=== PATIENT | female | born 1935 | race Caucasian/White ===

== ENCOUNTER 2016-09-12 16:07 | Inpatient (IN) ==
[2016-09-12] MEDS ORDERED: Ipratropium/Albuterol Neb 3 ML IH ONE (17:09)
[2016-09-12 17:23] LABS: INR 2.2; Prothrombin Time 24.5 Seconds (9.4-12.1)
[2016-09-12 17:24] LABS: Basophils % 0.5 %; Eosinophils % 0.3 %; Hemoglobin 14.1 g/dL (11.5-15.4); Immature Granulocytes % 0.4 % (0-4); Lymphocytes # 0.8 K/mcL (0.6-4.6); Lymphocytes % 10.3 %; Mean Corpuscular Hemoglobin 26.7 pg (28.0-33.3); Mean Corpuscular Volume 83.2 fL (83.0-100.0); Monocytes # 0.7 K/mcL (0.0-1.3); Monocytes % 9.6 %; Neutrophils # 6.1 K/mcL (1.6-8.9); Platelet Count 273 K/mcL (140-400); Red Blood Count 5.29 M/mcL (3.82-4.97); Red Cell Distribution Width 13.9 % (11.5-14.5); Segmented Neutrophils % 78.9 %
[2016-09-12 17:26] LABS: Activated Partial Thrombo Time 37.1 Seconds (26.0-36.0)
[2016-09-12 17:28] LABS: VBG HCO3 27.7 mEq/L (21-27); VBG PCO2 48.4 mmHg (41-51); VBG PH 7.37 pH Units (7.32-7.42); VBG PO2 20.8 mmHg (25-40)
[2016-09-12 17:32] LABS: BUN/Creatinine Ratio 13 (6-26); Blood Urea Nitrogen 14 mg/dL (7-20); Calcium 9.4 mg/dL (8.6-10.8); Carbon Dioxide 24 mEq/L (19-29); Chloride 101 mEq/L (98-109); Glucose 123 mg/dL (70-99); Osmolality,Calculated 288 (280-300); Potassium 4.5 mEq/L (3.5-4.5); Sodium 138 mEq/L (136-145); eGFR For African Americans > 60 (> 60); eGFR For Non-African Americans 50 (> 60)
[2016-09-12 17:35] LABS: Albumin 3.3 g/dL (3.5-5.0); Albumin/Globulin Ratio 0.8 (1.1-2.2); Bilirubin,Direct 0.5 mg/dL (0.0-0.5); Bilirubin,Indirect 0.5 mg/dL (0.0-1.2); Globulin 4.4 g/dL (2.4-3.5); Magnesium 1.8 mg/dL (1.6-2.6); Phosphorous 3.1 mg/dL (2.3-4.7); Total Protein 7.7 g/dL (6.0-8.3)
[2016-09-12] MEDS ORDERED: Furosemide 40 MG/4 ML VIAL IVP ONE (17:42)
--- NOTE | 2016-09-12 19:06 | Emergency Department Note ---
Disposition Clinical Impression: Dyspnea Disposition: Admitted As Inpatient Condition: Fair Time of Disposition: 18:00 SOB HPI - General Chief Complaint: ED Shortness of Breath/Dyspnea Stated Complaint: shortness of breath Source: patient, EMS Limitations: no limitations Nursing Notes Reviewed: Yes Vital Signs Reviewed: Yes - History of Present Illness For about a week or so Miss Andrea has had shortness of breath on exertion and a lot of fatigue. She has also been coughing productively. No dizziness no lightheadedness. Appetite is down secondary to lack of energy. No nausea vomiting or diarrhea. She denies any chest pain diaphoresis. Pt Subjective Complaint: shortness of breath, cough - Related Data Home Medications Medication Instructions Recorded Confirmed Cetirizine HCl [Zyrtec] 10 mg PO DAILY 01/08/15 09/12/16 Omeprazole [Prilosec] 40 mg PO DAILY 01/08/15 09/12/16 Warfarin [Coumadin] 4.5 mg PO 1800 01/08/15 09/12/16 Furosemide [Lasix] 20 mg PO DAILY 10/01/15 09/12/16 Allergies Allergy/AdvReac Type Severity Reaction Status Date / Time No Known Allergies Allergy Verified 09/12/16 21:21 Constitutional: Denies: fever, chills ENT ED: Denies: congestion Cardiovascular: Reports: dyspnea on exertion. Denies: chest pain, palpitations Respiratory: Reports: cough, dyspnea, sputum production Gastrointestinal: Denies: abdominal pain, nausea, vomiting, diarrhea Musculoskeletal: Denies: myalgia Neurological: Denies: headache Endocrine: Reports: fatigue Past Medical History - Past Medical History Medical history: Reports: atrial fibrillation, cancer, COPD, GERD, other Surgical history: Reports: appendectomy, cataract, other Psychiatric history: Reports: no psych history MIME ARTIST history: Reports: no MIME ARTIST history - Social History Smoking Status: Former smoker Smokeless Tobacco Status: No Alcohol use: Reports: none Drug use: Reports: none Physical Exam - General Limitations: no limitations General appearance: alert, in no apparent distress - Head Head exam: normocephalic - Eye Eye exam: Present: normal appearance - ENT ENT exam: normal oropharynx, mucous membranes moist, TM's normal bilaterally, normal external ear exam - Neck Neck exam: Present: normal inspection. Absent: lymphadenopathy - Chest Chest inspection: Present: normal inspection, symmetric chest wall rise - Respiratory Respiratory exam: Present: wheezes (Fair air exchange with inspiratory expiratory wheezes bilaterally symmetrically), other (Inspiratory crackles bilateral bases). Absent: respiratory distress - Cardiovascular Cardiovascular exam: Present: tachycardia, normal heart sounds. Absent: normal rhythm (Irregular rhythm), systolic murmur, diastolic murmur, JVD - Abdominal Exam Abdominal exam: Present: soft, Non-Tender - Extremities Exam Extremities exam: Present: normal inspection, pedal edema (Trace nonpitting ankle edema). Absent: calf tenderness (No calf Edema cord or erythema) - Neurological Exam Neurological exam: Present: alert - Psychiatric Psychiatric exam: Present: normal affect, normal mood - Skin Skin exam: Present: warm, dry Course Vital Signs Temperature 97.9 F 09/12/16 16:21 Pulse Rate 103 09/12/16 16:21 Respiratory Rate 22 09/12/16 16:21 Blood Pressure 132/95 09/12/16 16:21 O2 Sat by Pulse Oximetry 94 09/12/16 16:21 Temperature 98.2 F 09/13/16 03:13 Pulse Rate 90 09/13/16 03:13 Respiratory Rate 20 09/13/16 03:13 Blood Pressure 134/81 09/13/16 03:13 O2 Sat by Pulse Oximetry 94 09/13/16 03:13 Oxygen Delivery Oxygen Delivery Nasal Cannula Shortness of Breath/Dyspnea - [facility] Narrative Medical decision making narrative: Shortness of breath. There seems to be at least a couple of different etiologies. The chest x-ray was read as pneumonia although she has no white count or fever. I believe she does have a COPD exacerbation for which antibiotics would be indicated. IV Levaquin was given along with DuoNeb's which have given her some subjective relief. She did however remain O2 dependent during her time of observation here in the emergency department. She does not have home oxygen. She also seems to have some heart failure. 4 majority of the time here in the emergency department her heart rate was in the 110s. Cardizem drip was ordered but before was given her rate resolved to the 80s. She is not on Cardizem or a beta jamila. By mouth Cardizem instead was ordered with parameters for it to be held less than 60 bpm. Because she is O2 dependent it would be prudent to admit her here to the hospital. I spoke with the covering hospitalist and presented the case. He accepted admission. She was transferred from the ER to the floor in stable condition. - Lab Data Lab results reviewed: Yes I reviewed the patient's lab results. Result diagrams: 09/12/16 17:05 09/12/16 17:05 Lab Results 09/12/16 09/12/16 09/12/16 Range/Units 17:05 17:05 17:05 WBC 7.7 (4.3-11.1) K/mcL RBC 5.29 H (3.82-4.97) M/mcL Hgb 14.1 (11.5-15.4) g/dL Hct 44.0 (35.3-44.9) % MCV 83.2 (83.0-100.0) fL MCH 26.7 L (28.0-33.3) pg MCHC 32.0 (31.6-35.5) g/dL RDW 13.9 (11.5-14.5) % Plt Count 273 (140-400) K/mcL MPV 10.0 (9.4-12.4) fL Immature Gran % 0.4 (0-4) % Seg Neutrophils % 78.9 % Lymphocytes % 10.3 % Monocytes % 9.6 % Eosinophils % 0.3 % Basophils % 0.5 % Neutrophils # 6.1 (1.6-8.9) K/mcL Lymphocytes # 0.8 (0.6-4.6) K/mcL Monocytes # 0.7 (0.0-1.3) K/mcL Eosinophils # 0.0 (0.0-0.6) K/mcL Basophils # 0.0 (0.0-0.2) K/mcL PT (9.4-12.1) Seconds INR APTT (26.0-36.0) Seconds D-Dimer (0-500) ng/mLFEU VBG pH (7.32-7.42) pH Units VBG pCO2 (41-51) mmHg VBG pO2 (25-40) mmHg VBG HCO3 (21-27) mEq/L VBG Lactic Acid (0.5-2.2) mmol/L Sodium 138 (136-145) mEq/L Potassium 4.5 (3.5-4.5) mEq/L Chloride 101 (98-109) mEq/L Carbon Dioxide 24 (19-29) mEq/L BUN 14 (7-20) mg/dL Creatinine 1.05 (0.57-1.11) mg/dL Est GFR ( Amer) > 60 (> 60) Est GFR (Non-Af Amer) 50 L (> 60) BUN/Creatinine Ratio 13 (6-26) Glucose 123 H (70-99) mg/dL Calculated Osmolality 288 (280-300) Calcium 9.4 (8.6-10.8) mg/dL Phosphorus (2.3-4.7) mg/dL Magnesium (1.6-2.6) mg/dL Total Bilirubin (0.2-1.2) mg/dL Direct Bilirubin (0.0-0.5) mg/dL Indirect Bilirubin (0.0-1.2) mg/dL AST (5-34) Units/L ALT (0-55) Units/L Alkaline Phosphatase (38-126) Units/L Troponin I 0.03 (0-0.03) ng/mL B-Natriuretic Peptide (0-100) pg/mL Serum Total Protein (6.0-8.3) g/dL Albumin (3.5-5.0) g/dL Globulin (2.4-3.5) g/dL Albumin/Globulin Ratio (1.1-2.2) 09/12/16 09/12/16 09/12/16 Range/Units 17:05 17:05 17:05 WBC (4.3-11.1) K/mcL RBC (3.82-4.97) M/mcL Hgb (11.5-15.4) g/dL Hct (35.3-44.9) % MCV (83.0-100.0) fL MCH (28.0-33.3) pg MCHC (31.6-35.5) g/dL RDW (11.5-14.5) % Plt Count (140-400) K/mcL MPV (9.4-12.4) fL Immature Gran % (0-4) % Seg Neutrophils % % Lymphocytes % % Monocytes % % Eosinophils % % Basophils % % Neutrophils # (1.6-8.9) K/mcL Lymphocytes # (0.6-4.6) K/mcL Monocytes # (0.0-1.3) K/mcL Eosinophils # (0.0-0.6) K/mcL Basophils # (0.0-0.2) K/mcL PT (9.4-12.1) Seconds INR APTT (26.0-36.0) Seconds D-Dimer 343 (0-500) ng/mLFEU VBG pH 7.37 (7.32-7.42) pH Units VBG pCO2 48.4 (41-51) mmHg VBG pO2 20.8 L (25-40) mmHg VBG HCO3 27.7 H (21-27) mEq/L VBG Lactic Acid 1.7 (0.5-2.2) mmol/L Sodium (136-145) mEq/L Potassium (3.5-4.5) mEq/L Chloride (98-109) mEq/L Carbon Dioxide (19-29) mEq/L BUN (7-20) mg/dL Creatinine (0.57-1.11) mg/dL Est GFR ( Amer) (> 60) Est GFR (Non-Af Amer) (> 60) BUN/Creatinine Ratio (6-26) Glucose (70-99) mg/dL Calculated Osmolality (280-300) Calcium (8.6-10.8) mg/dL Phosphorus (2.3-4.7) mg/dL Magnesium (1.6-2.6) mg/dL Total Bilirubin (0.2-1.2) mg/dL Direct Bilirubin (0.0-0.5) mg/dL Indirect Bilirubin (0.0-1.2) mg/dL AST (5-34) Units/L ALT (0-55) Units/L Alkaline Phosphatase (38-126) Units/L Troponin I (0-0.03) ng/mL B-Natriuretic Peptide 509 H (0-100) pg/mL Serum Total Protein (6.0-8.3) g/dL Albumin (3.5-5.0) g/dL Globulin (2.4-3.5) g/dL Albumin/Globulin Ratio (1.1-2.2) 09/12/16 09/12/16 Range/Units 17:05 17:05 WBC (4.3-11.1) K/mcL RBC (3.82-4.97) M/mcL Hgb (11.5-15.4) g/dL Hct (35.3-44.9) % MCV (83.0-100.0) fL MCH (28.0-33.3) pg MCHC (31.6-35.5) g/dL RDW (11.5-14.5) % Plt Count (140-400) K/mcL MPV (9.4-12.4) fL Immature Gran % (0-4) % Seg Neutrophils % % Lymphocytes % % Monocytes % % Eosinophils % % Basophils % % Neutrophils # (1.6-8.9) K/mcL Lymphocytes # (0.6-4.6) K/mcL Monocytes # (0.0-1.3) K/mcL Eosinophils # (0.0-0.6) K/mcL Basophils # (0.0-0.2) K/mcL PT 24.5 H (9.4-12.1) Seconds INR 2.2 APTT 37.1 H (26.0-36.0) Seconds D-Dimer (0-500) ng/mLFEU VBG pH (7.32-7.42) pH Units VBG pCO2 (41-51) mmHg VBG pO2 (25-40) mmHg VBG HCO3 (21-27) mEq/L VBG Lactic Acid (0.5-2.2) mmol/L Sodium (136-145) mEq/L Potassium (3.5-4.5) mEq/L Chloride (98-109) mEq/L Carbon Dioxide (19-29) mEq/L BUN (7-20) mg/dL Creatinine (0.57-1.11) mg/dL Est GFR ( Amer) (> 60) Est GFR (Non-Af Amer) (> 60) BUN/Creatinine Ratio (6-26) Glucose (70-99) mg/dL Calculated Osmolality (280-300) Calcium (8.6-10.8) mg/dL Phosphorus 3.1 (2.3-4.7) mg/dL Magnesium 1.8 (1.6-2.6) mg/dL Total Bilirubin 1.0 (0.2-1.2) mg/dL Direct Bilirubin 0.5 (0.0-0.5) mg/dL Indirect Bilirubin 0.5 (0.0-1.2) mg/dL AST 13 (5-34) Units/L ALT 8 (0-55) Units/L Alkaline Phosphatase 126 (38-126) Units/L Troponin I (0-0.03) ng/mL B-Natriuretic Peptide (0-100) pg/mL Serum Total Protein 7.7 (6.0-8.3) g/dL Albumin 3.3 L (3.5-5.0) g/dL Globulin 4.4 H (2.4-3.5) g/dL Albumin/Globulin Ratio 0.8 L (1.1-2.2) - Radiology Data Radiology results reviewed: Yes I reviewed the patient's radiology results. - EKG Data EKG attestation: Yes I reviewed and interpreted this EKG. EKG results narrative: EKG as interpreted by me 120 bpm rhythm irregular consistent with A. fib. Some nonspecific T-wave flattening. T-wave depression one box V5 V6. No ST elevation. Normal axis. No evidence of hypertrophy. QRS complexes are of differing morphology with at least one PVC in the rhythm strip. There do not appear to be any significant changes from January 2016.
[2016-09-12] MEDS ORDERED: Diltiazem CD (24hr) 120 MG CAPSULE PO SCH (19:15)
[2016-09-12] MEDS ORDERED: MOM Conc 10 ML UD.LIQ PO PRN (20:24)
[2016-09-12] MEDS ORDERED: Naloxone 0.4 MG/ML INJ IVP PRN (20:24)
[2016-09-12] MEDS ORDERED: Levofloxacin 500 MG/100 ML 500 MG/100 ML BAG IVPB SCH (21:00)
[2016-09-12] MEDS: Aspirin 81 MG TAB.CHEW PO SCH (21:24)
[2016-09-12] MEDS: *HR* Enoxaparin 40 MG/0.4 ML SYRINGE SQ SCH (21:25)
[2016-09-12] MEDS: Furosemide 40 MG/4 ML VIAL IVP SCH (21:27)
[2016-09-12] MEDS: Acetaminophen 325 MG TABLET PO PRN (21:31)
[2016-09-13] MEDS: Furosemide 40 MG/4 ML VIAL IVP SCH ×4 (03:14→20:39)
[2016-09-13] MEDS: *HR* Enoxaparin 40 MG/0.4 ML SYRINGE SQ SCH (06:39)
[2016-09-13] MEDS: Aspirin 81 MG TAB.CHEW PO SCH (08:31)
[2016-09-13] MEDS: Diltiazem CD (24hr) 120 MG CAPSULE PO SCH (08:31)
[2016-09-13] MEDS: Ondansetron 4 MG/2 ML VIAL IVP PRN (12:52)
[2016-09-13 14:32] LABS: INR 2.5; Prothrombin Time 27.9 Seconds (9.4-12.1)
--- NOTE | 2016-09-13 16:39 | Internal Med History&Physical ---
Date of Encounter: 09/13/16 Time of Encounter: 16:37 Assessment and Plan (1) Pneumonia Current visit: Yes Status: Acute Improving on Levaquin. We will continue with IV antibiotics and pulmonary treatment Qualifiers: Pneumonia type: due to unspecified organism Laterality: unspecified laterality Lung location: unspecified part of lung Qualified Code(s): J18.9 - Pneumonia, unspecified organism (2) COPD (chronic obstructive pulmonary disease) Current visit: Yes Status: Chronic Qualifiers: COPD type: unspecified COPD Qualified Code(s): J44.9 - Chronic obstructive pulmonary disease, unspecified Internal Medicine - H&P: HPI Admitted From: Emergency Dept History of present illness: Ms. Andrea is a 80 year old female admitted to the ED yesterday has had shortness of breath on exertion and a lot of fatigue. She has also been coughing productively. No dizziness no lightheadedness. Appetite is down secondary to lack of energy. No nausea vomiting or diarrhea. She denies any chest pain diaphoresis. On today's examination she states she is feeling much better. She still get short of breath when she exerted herself itches to some mild cough. She still complains of mild weakness Pt Subjective Complaint: shortness of breath, cough Past Med Surg Social Fam HX - Past Medical History Medical history: atrial fibrillation, cancer, COPD, GERD, other Psychiatric history: no psych history - Past Surgical History Surgical History: appendectomy, cataract, other - Social History Smoking Status: Former smoker Smokeless Tobacco Status: No Alcohol use: none Drug use: none - Family History Daughter Adopted: [place]: Kati Luke Age: 42 Living Status: Still Living Hx Family Cardiac Disorders: No Hx Family Respiratory Disorders: Yes Hx Family Cancer: Yes Hx Family GI Disorders: Yes Hx Family Genitourinary Disorders: Yes Hx Family Endocrine Disorder: No Hx Family Musculoskeletal Disorders: No Hx Family Neuromuscular Disorders: No Hx Family Neurologic Disorders: No Hx Family HEENT Disorders: No Hx Family Autoimmune Disorders: No Hx Family Reproductive Disorders: No Hx Family Psychosocial Disorders: No Hx Family Medical Disorders: No Internal Medicine - H&P: Meds Cetirizine HCl [Zyrtec] 10 mg PO DAILY 01/08/15 [History] Omeprazole [Prilosec] 40 mg PO DAILY 01/08/15 [History] Warfarin [Coumadin] 4.5 mg PO 1800 01/08/15 [History] Furosemide [Lasix] 20 mg PO DAILY 10/01/15 [History] Allergies No Known Allergies Allergy (Verified 09/12/16 21:21) All Systems PM: A 10-system review of systems was performed and is negative for pertinent findings except as documented above in the HPI. - Constitutional Constitutional: weakness - Cardiovascular Cardiovascular ROS IM: no chest pain, no diaphoresis, no dyspnea, no lightheadedness, no palpitations, no syncope - Respiratory Respiratory: cough, dyspnea on exertion, no dyspnea, no wheezing, no excessive phlegm production - Gastrointestinal Gastrointestinal: no abdominal pain, no diarrhea, no hematemesis, no hematochezia, no melena, no nausea, no vomiting - Musculoskeletal Musculoskeletal ROS IM: arthralgias, back pain - Neurological Neurological ROS: no confusion, no convulsions, no focal weakness, no numbness, no tingling, no tremor(s) - Constitutional Vitals: Temp Pulse Resp BP Pulse Ox 98.2 F 75 18 120/60 94 09/13/16 16:34 09/13/16 16:34 09/13/16 16:34 09/13/16 16:34 09/13/16 03:13 General appearance: Present: A&O X 3, pleasant, no acute distress - Respiratory Respiratory exam: Present: decreased breath sounds - Cardiovascular Cardiovascular exam: Present: RRR, +S1, +S2. Absent: diastolic murmur, gallop, rubs, systolic murmur - GI/Abdominal GI/Abdominal exam: Present: normal bowel sounds, soft, no peritoneal signs. Absent: distended, tenderness - Extremities Exam Extremities exam: Present: warm, radial pulses palpable and symetrical. Absent : calf tenderness, cyanotic, pedal edema Internal Med - H&P Results - Labs CBC & Chem 7: 09/12/16 17:05 09/12/16 17:05 Labs: Cardiac Enzymes 09/12/16 09/13/16 09/13/16 Range/Units 21:00 02:30 09:00 Troponin I 0.03 0.03 0.04 H* (0-0.03) ng/mL
[2016-09-13] MEDS ORDERED: *HR* Warfarin 3 MG TABLET PO ONE (18:00)
[2016-09-13] MEDS ORDERED: Warfarin perPT PO PRN (18:00)
[2016-09-13] MEDS ORDERED: *HR* Warfarin 5 MG TABLET PO SCH (18:00)
[2016-09-13] MEDS: Levofloxacin 250 MG/50 ML 250 MG/50 ML BAG IVPB SCH (20:38)
[2016-09-14] MEDS: Furosemide 40 MG/4 ML VIAL IVP SCH ×4 (02:24→20:22)
[2016-09-14 05:42] LABS: Basophils % 0.5 %; Eosinophils # 0.1 K/mcL (0.0-0.6); Eosinophils % 1.2 %; Hematocrit 40.7 % (35.3-44.9); Hemoglobin 13.6 g/dL (11.5-15.4); INR 2.1; Immature Granulocytes % 0.5 % (0-4); Lymphocytes # 0.9 K/mcL (0.6-4.6); Lymphocytes % 11.1 %; Mean Corpuscular HGB Conc 33.4 g/dL (31.6-35.5); Mean Corpuscular Hemoglobin 27.1 pg (28.0-33.3); Mean Corpuscular Volume 81.1 fL (83.0-100.0); Monocytes # 1.1 K/mcL (0.0-1.3); Monocytes % 13.3 %; Platelet Count 265 K/mcL (140-400); Prothrombin Time 22.9 Seconds (9.4-12.1); Red Blood Count 5.02 M/mcL (3.82-4.97); Red Cell Distribution Width 13.7 % (11.5-14.5); Segmented Neutrophils % 73.4 %
[2016-09-14 05:53] LABS: Albumin 3.1 g/dL (3.5-5.0); Albumin/Globulin Ratio 0.8 (1.1-2.2); Bilirubin,Total 0.8 mg/dL (0.2-1.2); Calcium 8.9 mg/dL (8.6-10.8); Globulin 4.1 g/dL (2.4-3.5); Potassium 3.8 mEq/L (3.5-4.5); Total Protein 7.2 g/dL (6.0-8.3)
[2016-09-14] MEDS: Aspirin 81 MG TAB.CHEW PO SCH (08:52)
[2016-09-14] MEDS: Diltiazem CD (24hr) 120 MG CAPSULE PO SCH (08:52)
--- NOTE | 2016-09-14 14:17 | Internal Med Progress Note ---
Date of Encounter: 09/14/16 Time of Encounter: 14:15 - Assessment and plan (1) Pneumonia Current Visit: Yes Status: Acute Assessment and plan: Patient is getting IV antibiotics and breathing treatments. Qualifiers: Pneumonia type: due to unspecified organism Laterality: unspecified laterality Lung location: unspecified part of lung Qualified Code(s): J18.9 - Pneumonia, unspecified organism (2) COPD (chronic obstructive pulmonary disease) Current Visit: Yes Status: Chronic Assessment and plan: COPD seems to be stable Qualifiers: COPD type: unspecified COPD Qualified Code(s): J44.9 - Chronic obstructive pulmonary disease, unspecified - Time Spent With Patient less than 15 minutes - Subjective Interval history: I'm feeling a little better." Still coughing some. But she has decent appetite. She has no fever and no white count. Chest x-ray shows questionable airspace disease. We will follow serial x-rays - Constitutional Vitals: Temp Pulse Resp BP Pulse Ox 98.1 F 78 16 112/67 92 09/14/16 11:00 09/14/16 11:00 09/14/16 11:00 09/14/16 11:00 09/14/16 11:00 General appearance: Present: A&O X 3, pleasant, no acute distress - Head Head exam: Present: atraumatic, normal inspection, normocephalic - Neck Neck exam general surgery: Present: supple, trachea midline. Absent: lymphadenopathy - Respiratory Respiratory exam: Present: CTAB. Absent: accessory muscle use, rales, rhonchi, wheezes - Cardiovascular Cardiovascular exam: Present: RRR, +S1, +S2. Absent: diastolic murmur, gallop, rubs, systolic murmur Internal Medicine: Result - Labs CBC & Chem 7: 09/14/16 05:15 09/14/16 05:15 Labs: Short CBC 09/14/16 Range/Units 05:15 WBC 8.2 (4.3-11.1) K/mcL Hgb 13.6 (11.5-15.4) g/dL Hct 40.7 (35.3-44.9) % Plt Count 265 (140-400) K/mcL Neutrophils # 6.0 (1.6-8.9) K/mcL BMP 09/14/16 05:15 Sodium 135 L Potassium 3.8 Chloride 96 L Carbon Dioxide 25 BUN 25 H D Creatinine 1.36 H Glucose 137 H Calcium 8.9 Liver Function 09/14/16 Range/Units 05:15 Total Bilirubin 0.8 (0.2-1.2) mg/dL AST 16 (5-34) Units/L ALT 10 (0-55) Units/L Alkaline Phosphatase 121 (38-126) Units/L Albumin 3.1 L (3.5-5.0) g/dL Lab is stable - ABG Interpretation ABG results: PT/INR, D-dimer PT 22.9 Seconds (9.4-12.1) H 09/14/16 05:15 D-Dimer 343 ng/mLFEU (0-500) 09/12/16 17:05 - Impressions Impressions Chest X-Ray 09/14/16 08:00 IMPRESSION: Stable appearance of patchy bilateral airspace disease, which could represent pneumonia. D/ / Ronald Rosado MD / Ronald Rosado MD Interpreting Provider: Ronald Rosado MD Consult Discharge Plan - Plan Referrals: Jaiden Hargrove, [employer]INE OPERATOR [Primary Care Provider] -
--- NOTE | 2016-09-14 16:43 | Electrocardiograph Report ---
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
[2016-09-14] MEDS: Ipratropium/Albuterol Neb 3 ML IH PRN (17:19)
[2016-09-14] MEDS ORDERED: *HR* Warfarin 4 MG TABLET PO ONE (18:00)
[2016-09-14] MEDS: Levofloxacin 250 MG/50 ML 250 MG/50 ML BAG IVPB SCH (20:23)
[2016-09-15 05:35] LABS: INR 1.7; Prothrombin Time 18.8 Seconds (9.4-12.1)
[2016-09-15] MEDS: Diltiazem CD (24hr) 120 MG CAPSULE PO SCH (09:46)
[2016-09-15] MEDS: Aspirin 81 MG TAB.CHEW PO SCH (09:46)
--- NOTE | 2016-09-15 13:40 | Internal Med Progress Note ---
Date of Encounter: 09/16/16 Time of Encounter: 13:39 - Assessment and plan (1) Pneumonia Current Visit: Yes Status: Acute Assessment and plan: Chest x-ray does not show much change continue to follow Qualifiers: Pneumonia type: due to unspecified organism Laterality: unspecified laterality Lung location: unspecified part of lung Qualified Code(s): J18.9 - Pneumonia, unspecified organism (2) COPD (chronic obstructive pulmonary disease) Current Visit: Yes Status: Chronic Assessment and plan: By history Qualifiers: COPD type: emphysema Qualified Code(s): J43.1 - Panlobular emphysema - Time Spent With Patient less than 15 minutes - Subjective Interval history: Recheck the labs in a.m. including INR and Chem-7. The patient's doing well not short of breath not wearing oxygen. The chest x-ray does not show much change. I will follow that up in the a.m. last lambert increase the Levaquin from 250-500. - Constitutional Vitals: Temp Pulse Resp BP Pulse Ox 98.0 F 78 18 129/68 93 09/15/16 12:00 09/15/16 12:00 09/15/16 12:00 09/15/16 12:00 09/15/16 03:57 General appearance: Present: A&O X 3, pleasant, no acute distress - Head Head exam: Present: atraumatic, normal inspection, normocephalic - Neck Neck exam general surgery: Present: supple, trachea midline. Absent: lymphadenopathy - Respiratory Respiratory exam: Present: CTAB. Absent: accessory muscle use, rales, rhonchi, wheezes - Cardiovascular Cardiovascular exam: Present: RRR, +S1, +S2. Absent: diastolic murmur, gallop, rubs, systolic murmur Internal Medicine: Result - Labs CBC & Chem 7: 09/16/16 04:40 09/16/16 04:40 Labs: Habits commented it is stable INR still not therapeutic - ABG Interpretation ABG results: PT/INR, D-dimer PT 18.8 Seconds (9.4-12.1) H 09/15/16 05:10 D-Dimer 343 ng/mLFEU (0-500) 09/12/16 17:05 Consult Discharge Plan - Plan Referrals: Jaiden Hargrove, CHEMICAL BLENDER [Primary Care Provider] -
[2016-09-15] MEDS: Ondansetron 4 MG/2 ML VIAL IVP PRN (14:59)
[2016-09-15] MEDS: Levofloxacin 500 MG/100 ML 500 MG/100 ML BAG IVPB SCH (15:03)
[2016-09-15] MEDS: Acetaminophen 325 MG TABLET PO PRN ×2 (16:13→22:33)
[2016-09-15] MEDS ORDERED: *HR* Warfarin 4 MG TABLET PO ONE (18:00)
[2016-09-16 04:56] LABS: Basophils % 0.6 %; Eosinophils % 0.2 %; Hematocrit 40.3 % (35.3-44.9); Hemoglobin 13.2 g/dL (11.5-15.4); Immature Granulocytes % 0.9 % (0-4); Lymphocytes # 0.6 K/mcL (0.6-4.6); Mean Corpuscular HGB Conc 32.8 g/dL (31.6-35.5); Mean Corpuscular Hemoglobin 26.9 pg (28.0-33.3); Mean Corpuscular Volume 82.2 fL (83.0-100.0); Mean Platelet Volume 9.8 fL (9.4-12.4); Monocytes # 0.6 K/mcL (0.0-1.3); Monocytes % 9.6 %; Neutrophils # 5.2 K/mcL (1.6-8.9); Platelet Count 222 K/mcL (140-400); Red Cell Distribution Width 13.7 % (11.5-14.5); Segmented Neutrophils % 79.7 %
[2016-09-16 04:58] LABS: INR 1.6; Prothrombin Time 17.6 Seconds (9.4-12.1)
[2016-09-16 05:07] LABS: BUN/Creatinine Ratio 21 (6-26); Blood Urea Nitrogen 21 mg/dL (7-20); Carbon Dioxide 28 mEq/L (19-29); Chloride 98 mEq/L (98-109); Glucose 138 mg/dL (70-99); Osmolality,Calculated 285 (280-300); Potassium 4.4 mEq/L (3.5-4.5); Sodium 135 mEq/L (136-145); eGFR For African Americans > 60 (> 60); eGFR For Non-African Americans 54 (> 60)
[2016-09-16] MEDS: Ondansetron 4 MG/2 ML VIAL IVP PRN (08:02)
[2016-09-16] MEDS: Acetaminophen 325 MG TABLET PO PRN (08:20)
[2016-09-16] MEDS: Diltiazem CD (24hr) 120 MG CAPSULE PO SCH (08:21)
[2016-09-16] MEDS: Aspirin 81 MG TAB.CHEW PO SCH (08:21)
[2016-09-16] MEDS: Ipratropium/Albuterol Neb 3 ML IH PRN (08:21)
[2016-09-16 11:09] VITALS: BP 115/68
--- NOTE | 2016-09-16 11:31 | Discharge Summary ---
Date of Encounter: 09/16/16 Time of Encounter: 11:29 - Discharge Diagnosis (1) Pneumonia Priority: Primary Status: Acute Comments: Allan is much improved overall chest x-ray basically says pneumonia is clear Qualifiers: Pneumonia type: due to unspecified organism Laterality: unspecified laterality Lung location: unspecified part of lung Qualified Code(s): J18.9 - Pneumonia, unspecified organism (2) COPD (chronic obstructive pulmonary disease) Priority: Secondary Status: Chronic Comments: Contributing factor Qualifiers: COPD type: emphysema Qualified Code(s): J43.8 - Other emphysema - Discharge Medications Home Medications: Cetirizine HCl [Zyrtec] 10 mg PO DAILY 01/08/15 [History] Omeprazole [Prilosec] 40 mg PO DAILY 01/08/15 [History] Warfarin [Coumadin] 4.5 mg PO 1800 01/08/15 [History] Furosemide [Lasix] 20 mg PO DAILY 10/01/15 [History] Allergies/Adverse Reactions: Allergies No Known Allergies Allergy (Verified 09/12/16 21:21) Date of admission: 09/12/16 20:18 Primary care physician: Jaiden Hargrove CNP Consults: 09/12/16 22:05 Consult to Nutrition [CONS] Routine Comment: Consulting Provider: NUTRITION Reason for Dietary Consult: MST Score Consult to Contin[employer] Of Care Manager [CONS] Routine Reason for SW Consult: discharge planning Discharging clinician: William Corona Anticipated date of discharge: 09/16/16 - Patient Status Disposition: Home, Self-Care Condition: Good Functional capacity at discharge: independent ambulation Overall status at discharge: patient is progressing back to baseline - Discharge Instructions Follow Up With: Jaiden Hargrove CNP [Primary Care Provider] - - Diet and Activity Activity: increase activity as tolerated Diet: advance to your usual diet Interval History: She was short of breath now sats 94% feeling better chest x-ray looks result Hospital course: Ms. Andrea is a 80 year old female Home today in the company of her daughter. We will get her medication and make sure she has follow-up appointments. Patient was told to return to emergency room any problems occur. - Time Spent with Patient Total time spent providing and/or coordinating discharge services: - Constitutional Vitals: Temp Pulse Resp BP Pulse Ox 98.2 F 78 20 115/68 94 09/16/16 11:08 09/16/16 11:08 09/16/16 11:08 09/16/16 11:08 09/16/16 11:08 General appearance: Present: A&O X 3, pleasant, no acute distress - Head Head exam: Present: atraumatic, normal inspection, normocephalic - Neck Neck exam general surgery: Present: supple, trachea midline. Absent: lymphadenopathy - Respiratory Respiratory exam: Present: decreased breath sounds, CTAB, prolonged expiratory phase. Absent: accessory muscle use, rales, rhonchi, wheezes - GI/Abdominal GI/Abdominal exam: Present: normal bowel sounds, soft, no peritoneal signs. Absent: distended, tenderness
[2016-09-16] MEDS: Levofloxacin 500 MG/100 ML 500 MG/100 ML BAG IVPB SCH (13:37)
[2016-09-16] MEDS ORDERED: Aminoglycoside Consult 1 EACH MC ONE (15:09)
[2016-09-16] MEDS ORDERED: *HR* Warfarin 5 MG TABLET PO ONE (18:00)
== END 2016-09-16 15:10 | disposition home or self-care (01) | DRG 190 ==
LOC: INPGRE 16:07 → EMEROOGRE 16:07 → INPGRE 20:59
PROVIDERS: ADMIT Internal Medicine; ATTEND Internal Medicine

== ENCOUNTER 2017-12-05 16:25 | Observation (INO) ==
[2017-12-05 17:23] LABS: Basophils % 0.3 %; Eosinophils % 0.1 %; Hematocrit 44.4 % (35.3-44.9); Immature Granulocytes % 0.4 % (0-4); Lymphocytes # 0.7 K/mcL (0.6-4.6); Lymphocytes % 9.1 %; Mean Corpuscular HGB Conc 31.5 g/dL (31.6-35.5); Mean Corpuscular Hemoglobin 27.5 pg (28.0-33.3); Mean Corpuscular Volume 87.1 fL (83.0-100.0); Mean Platelet Volume 10.4 fL (9.4-12.4); Monocytes # 0.5 K/mcL (0.0-1.3); Monocytes % 5.7 %; Neutrophils # 6.7 K/mcL (1.6-8.9); Platelet Count 215 K/mcL (140-400); Red Cell Distribution Width 14.9 % (11.5-14.5); Segmented Neutrophils % 84.4 %
[2017-12-05] MEDS: 0.9 % Sodium Chloride 500 ML IVC ONE (17:25)
[2017-12-05] MEDS: Furosemide 40 MG/4 ML VIAL IVP ONE (17:26)
[2017-12-05 17:29] LABS: INR 2.4; Prothrombin Time 27.3 Seconds (9.4-12.1)
[2017-12-05 17:31] LABS: Activated Partial Thrombo Time 46.5 Seconds (26.0-36.0)
[2017-12-05 17:40] LABS: Alanine Aminotransferase 21 Units/L (7-52); Albumin 3.9 g/dL (3.5-5.7); Albumin/Globulin Ratio 1.2 (1.1-2.2); Alkaline Phosphatase 135 Units/L (34-104); Aspartate Amino Transferase 18 Units/L (13-39); BUN/Creatinine Ratio 16 (6-26); Bilirubin,Total 0.8 mg/dL (0.3-1.0); Blood Urea Nitrogen 14 mg/dL (8-23); Calcium 9.5 mg/dL (8.6-10.3); Carbon Dioxide 31 mEq/L (23-29); Chloride 103 mEq/L (98-107); Creatine Kinase 26 Units/L (30-223); Globulin 3.2 g/dL (2.4-3.5); Glucose 167 mg/dL (70-105); Osmolality,Calculated 294 (280-300); Potassium 4.1 mEq/L (3.5-5.1); Sodium 140 mEq/L (136-145); Total Protein 7.1 g/dL (6.4-8.9); Troponin I < 0.03 ng/mL (< 0.04); eGFR For Non-African Americans > 60 (> 60)
--- NOTE | 2017-12-05 19:21 | Emergency Department Note ---
Disposition Clinical Impression: Congestive heart failure Qualifiers: Heart failure type: unspecified Heart failure chronicity: acute on chronic Qualified Code(s): I50.9 - Heart failure, unspecified Disposition: Admitted As Inpatient Condition: Good Time of Disposition: 19:20 SOB HPI - General Chief Complaint: ED Shortness of Breath/Dyspnea Stated Complaint: TAZ Time Seen by Provider: 12/05/17 16:34 Source: patient, EMS Mode of arrival: EMS Limitations: no limitations Nursing Notes Reviewed: Yes Vital Signs Reviewed: Yes - History of Present Illness 82-year-old female presents to the ER with complaints of shortness of breath. Patient reports difficulty breathing started acutely last night. Patient reports she was unable to sleep or lay flat in her bed. Patient reports a nonproductive cough. Patient denies any chest pain. Denies any fevers or chills. Patient reports she has had similar symptoms with bronchitis and pneumonia. Patient does have a nebulizer which she does not use. She does have a smoking history but does not currently smoke. Patient is cared for by her daughter. Pt Subjective Complaint: shortness of breath, cough Onset (ago): day(s) (1) Severity: moderate Consistency/Duration: intermittent Improves with: upright position Worsens with: lying flat, exertion Known history of: COPD, congestive heart failure Associated symptoms: Reports: cough, orthopnea. Denies: fever, sputum production, nausea/vomiting Treatment prior to arrival: none Cough present: Yes Cough Description: Voluntary Cough Frequency: Intermittent Sputum production: No - Related Data Home oxygen amount: none Home Medications Medication Instructions Recorded Confirmed Omeprazole [Prilosec] 40 mg PO DAILY 01/08/15 12/05/17 Warfarin [Coumadin] 4 mg PO 1800 01/08/15 12/05/17 Furosemide [Lasix] 20 mg PO DAILY 10/01/15 12/05/17 Previous Rx's Medication Instructions Recorded cephALEXin [Keflex] 500 mg PO QID #40 capsule 11/25/17 Allergies Allergy/AdvReac Type Severity Reaction Status Date / Time No Known Allergies Allergy Verified 09/12/16 21:21 All systems ED: reviewed and negative except as stated. Review of Systems: As Per HPI Constitutional: Reports: weakness. Denies: fever, chills Cardiovascular: Reports: dyspnea on exertion. Denies: chest pain, palpitations Respiratory: Reports: cough, dyspnea. Denies: wheezes, hemoptysis Gastrointestinal: Denies: abdominal pain, nausea, vomiting Integumentary: Denies: rash Neurological: Reports: weakness. Denies: headache Hematological/Lymphatic: Denies: easy bleeding, easy bruising Allergic/Immunologic: Denies: facial swelling, urticaria Past Medical History - Past Medical History Attestation: Yes The following information was validated with the patient. Source: patient, obtained from family, nursing notes reviewed Medical history: Reports: atrial fibrillation, cancer, COPD, GERD, other Surgical history: Reports: appendectomy, cataract, other Psychiatric history: Reports: no psych history COMMUNICATIONS WRITER history: Reports: no COMMUNICATIONS WRITER history - Social History Smoking Status: Former smoker Smokeless Tobacco Status: No Alcohol use: Reports: none Drug use: Reports: none Physical Exam - General Limitations: no limitations General appearance: alert, in no apparent distress - Head Head exam: atraumatic, normocephalic - Eye Eye exam: Present: PERRL, EOMI, conjunctival injection - ENT ENT exam: normal oropharynx, mucous membranes moist, TM's normal bilaterally - Neck Neck exam: Present: normal inspection, full ROM. Absent: lymphadenopathy, thyromegaly - Expanded Neck Exam Neck exam focused ED: Absent: JVD, carotid bruit - Chest Chest inspection: Present: normal inspection, symmetric chest wall rise - Expanded Respiratory Exam Location: decreased breath sounds: Left, Right, Lower - Cardiovascular Cardiovascular exam: Present: tachycardia, irregular rhythm, normal heart sounds - Abdominal Exam Abdominal exam: Present: soft, Non-Tender, normal bowel sounds. Absent: organomegaly - Extremities Exam Extremities exam: Present: normal inspection. Absent: pedal edema, joint swelling - Neurological Exam Neurological exam: Present: alert, oriented X3 - Skin Skin exam: Present: warm, dry, intact, normal color Course Course Narrative: Patient received a breathing treatment en route with mild improvement of symptoms. Patient is very dyspneic with exertion and becomes tachycardic. Chest x-ray showing mild pulmonary vascular congestion may be combination with tachycardia from A. fib will admit patient for further evaluation and observation. Patient is agreement with this plan. I spoke with the practitioner who is covering for Dr. Sewell who has accepted patient. Discussed CODE STATUS with patient and she wishes to be a full code Vital Signs Temperature 98.4 F 12/05/17 16:35 Pulse Rate 95 12/05/17 16:35 Respiratory Rate 20 12/05/17 16:35 Blood Pressure 141/100 12/05/17 16:35 O2 Sat by Pulse Oximetry 94 12/05/17 16:35 Temperature 98.2 F 12/06/17 04:39 Pulse Rate 85 12/06/17 04:39 Respiratory Rate 18 12/06/17 04:39 Blood Pressure 151/85 12/06/17 04:39 O2 Sat by Pulse Oximetry 96 12/06/17 04:39 Oxygen Delivery Oxygen Delivery Nasal Cannula Shortness of Breath/Dyspnea - Differential Diagnosis Likely: congestive heart failure. Unlikely: pneumonia - Lab Data Lab results reviewed: Yes I reviewed the patient's lab results. Lab results narrative: Patient's labs were reviewed. Patient's BNP is elevated at 500. Patient's cardiac labs are negative. Patient does have hyperglycemia at 164 without known diagnosis of diabetes. Patient's cardiac labs are negative. Results discussed with patient. Result diagrams: 12/06/17 06:00 12/06/17 06:00 Lab Results 12/05/17 12/05/17 12/05/17 Range/Units 17:15 17:15 17:15 WBC 7.9 (4.3-11.1) K/mcL RBC 5.10 H (3.82-4.97) M/mcL Hgb 14.0 (11.5-15.4) g/dL Hct 44.4 (35.3-44.9) % MCV 87.1 (83.0-100.0) fL MCH 27.5 L (28.0-33.3) pg MCHC 31.5 L (31.6-35.5) g/dL RDW 14.9 H (11.5-14.5) % Plt Count 215 (140-400) K/mcL MPV 10.4 (9.4-12.4) fL Immature Gran % 0.4 (0-4) % Seg Neutrophils % 84.4 % Lymphocytes % 9.1 % Monocytes % 5.7 % Eosinophils % 0.1 % Basophils % 0.3 % Neutrophils # 6.7 (1.6-8.9) K/mcL Lymphocytes # 0.7 (0.6-4.6) K/mcL Monocytes # 0.5 (0.0-1.3) K/mcL Eosinophils # 0.0 (0.0-0.6) K/mcL Basophils # 0.0 (0.0-0.2) K/mcL PT 27.3 H (9.4-12.1) Seconds INR 2.4 APTT 46.5 H (26.0-36.0) Seconds Sodium 140 (136-145) mEq/L Potassium 4.1 (3.5-5.1) mEq/L Chloride 103 (98-107) mEq/L Carbon Dioxide 31 H (23-29) mEq/L BUN 14 (8-23) mg/dL Creatinine 0.88 (0.60-1.20) mg/dL Est GFR ( Amer) > 60 (> 60) Est GFR (Non-Af Amer) > 60 (> 60) BUN/Creatinine Ratio 16 (6-26) Glucose 167 H (70-105) mg/dL Calculated Osmolality 294 (280-300) Calcium 9.5 (8.6-10.3) mg/dL Total Bilirubin 0.8 (0.3-1.0) mg/dL AST 18 (13-39) Units/L ALT 21 (7-52) Units/L Alkaline Phosphatase 135 H (34-104) Units/L Creatine Kinase 26 L (30-223) Units/L Troponin I < 0.03 (< 0.04) ng/mL B-Natriuretic Peptide (Less than 100) pg/mL Serum Total Protein 7.1 (6.4-8.9) g/dL Albumin 3.9 (3.5-5.7) g/dL Globulin 3.2 (2.4-3.5) g/dL Albumin/Globulin Ratio 1.2 (1.1-2.2) /12/14 Range/Units 17:15 WBC (4.3-11.1) K/mcL RBC (3.82-4.97) M/mcL Hgb (11.5-15.4) g/dL Hct (35.3-44.9) % MCV (83.0-100.0) fL MCH (28.0-33.3) pg MCHC (31.6-35.5) g/dL RDW (11.5-14.5) % Plt Count (140-400) K/mcL MPV (9.4-12.4) fL Immature Gran % (0-4) % Seg Neutrophils % % Lymphocytes % % Monocytes % % Eosinophils % % Basophils % % Neutrophils # (1.6-8.9) K/mcL Lymphocytes # (0.6-4.6) K/mcL Monocytes # (0.0-1.3) K/mcL Eosinophils # (0.0-0.6) K/mcL Basophils # (0.0-0.2) K/mcL PT (9.4-12.1) Seconds INR APTT (26.0-36.0) Seconds Sodium (136-145) mEq/L Potassium (3.5-5.1) mEq/L Chloride (98-107) mEq/L Carbon Dioxide (23-29) mEq/L BUN (8-23) mg/dL Creatinine (0.60-1.20) mg/dL Est GFR ( Amer) (> 60) Est GFR (Non-Af Amer) (> 60) BUN/Creatinine Ratio (6-26) Glucose (70-105) mg/dL Calculated Osmolality (280-300) Calcium (8.6-10.3) mg/dL Total Bilirubin (0.3-1.0) mg/dL AST (13-39) Units/L ALT (7-52) Units/L Alkaline Phosphatase (34-104) Units/L Creatine Kinase (30-223) Units/L Troponin I (< 0.04) ng/mL B-Natriuretic Peptide 595 H (Less than 100) pg/mL Serum Total Protein (6.4-8.9) g/dL Albumin (3.5-5.7) g/dL Globulin (2.4-3.5) g/dL Albumin/Globulin Ratio (1.1-2.2) - Radiology Data Radiology results reviewed: Yes I reviewed the patient's radiology results. patients chest x-ray was interpreted by the radiologist and reviewed by me as positive for pulmonary vessel congestion. Results discussed with patient. - EKG Data EKG attestation: Yes I reviewed and interpreted this EKG. Rate: Reports: tachycardia Rhythm: Reports: A.Fib [place]/QRS: Reports: normal When compared to previous EKG there are: no significant changes Interpretation: Reports: no acute changes
[2017-12-05] MEDS ORDERED: Naloxone 0.4 MG/ML INJ IVP PRN (19:25)
[2017-12-05] MEDS ORDERED: Warfarin perPT PO PRN (21:58)
[2017-12-05] MEDS: cephALEXin 500 MG CAPSULE PO ONE (22:33)
[2017-12-05] MEDS: *HR* Warfarin 4 MG TABLET PO ONE (22:33)
[2017-12-06] MEDS: Ondansetron 4 MG/2 ML VIAL IVP PRN (05:27)
[2017-12-06] MEDS: Acetaminophen 325 MG TABLET PO PRN (05:30)
[2017-12-06 06:21] LABS: Basophils % 0.5 %; Eosinophils # 0.1 K/mcL (0.0-0.6); Eosinophils % 0.7 %; Hematocrit 40.8 % (35.3-44.9); Hemoglobin 13.1 g/dL (11.5-15.4); Immature Granulocytes % 0.5 % (0-4); Lymphocytes # 0.7 K/mcL (0.6-4.6); Lymphocytes % 8.6 %; Mean Corpuscular HGB Conc 32.1 g/dL (31.6-35.5); Mean Corpuscular Hemoglobin 27.6 pg (28.0-33.3); Mean Corpuscular Volume 86.1 fL (83.0-100.0); Mean Platelet Volume 10.5 fL (9.4-12.4); Monocytes # 0.6 K/mcL (0.0-1.3); Monocytes % 7.4 %; Neutrophils # 7.1 K/mcL (1.6-8.9); Platelet Count 206 K/mcL (140-400); Red Blood Count 4.74 M/mcL (3.82-4.97); Red Cell Distribution Width 14.8 % (11.5-14.5); Segmented Neutrophils % 82.3 %
[2017-12-06 06:38] LABS: BUN/Creatinine Ratio 16 (6-26); Blood Urea Nitrogen 14 mg/dL (8-23); Carbon Dioxide 34 mEq/L (23-29); Chloride 99 mEq/L (98-107); Glucose 164 mg/dL (70-105); Osmolality,Calculated 292 (280-300); Potassium 3.5 mEq/L (3.5-5.1); Sodium 139 mEq/L (136-145); eGFR For Non-African Americans > 60 (> 60)
[2017-12-06 06:45] LABS: INR 2.4; Prothrombin Time 27.3 Seconds (9.4-12.1)
[2017-12-06] MEDS: Furosemide 40 MG/4 ML VIAL IVP ONE (08:20)
--- NOTE | 2017-12-06 10:13 | Internal Med History&Physical ---
Date of Encounter: 12/06/17 Time of Encounter: 10:08 Assessment and Plan (1) Atrial fibrillation Current visit: Yes Status: Chronic Continue Coumadin. Pharmacy to dose according to INR. Rate and rhythm stable. Qualifiers: Atrial fibrillation type: chronic Qualified Code(s): I48.2 - Chronic atrial fibrillation (2) COPD (chronic obstructive pulmonary disease) Current visit: Yes Status: Chronic Continue inhaled meds and oxygen as needed to remain sets greater than 92%. Qualifiers: COPD type: unspecified COPD Qualified Code(s): J44.9 - Chronic obstructive pulmonary disease, unspecified (3) Congestive heart failure Current visit: Yes Status: Acute Improving. Continue Lasix. Qualifiers: Heart failure type: unspecified Heart failure chronicity: unspecified Qualified Code(s): I50.9 - Heart failure, unspecified Internal Medicine - H&P: HPI Admitted From: Emergency Dept Plans for Post Hospital Care: Home History of present illness: Ms. Andrea is a 82 year old female admitted to medical floor for observation. Presented to the emergency room last night with a 2 day history of shortness of breath, unable to sleep or lie flat, nonproductive cough. Denies chest pain fever, chills, nausea, vomiting or diarrhea. Has a nebulizer at home but does not use. Lives at home with daughter. History of smoking but does not currently smoke. Past medical history includes a fib, COPD, Gerd, cancer. Chest x-ray showed pulmonary vascular congestion. Takes Lasix PO and was also given 40 mg extra and the emergency room last night. States feeling much better this morning. O2 sats remained in greater than 92% with room air Past Med Surg Social Fam HX - Past Medical History Medical history: atrial fibrillation, cancer, COPD, GERD, other Additional medical history: SEASONAL ALLERGIES Psychiatric history: no psych history - Past Surgical History Surgical History: appendectomy, cataract, other Additional surgical history: T&A - Social History Smoking Status: Former smoker Smokeless Tobacco Status: No Alcohol use: none Drug use: none - Family History Daughter Adopted: No Living Status: Still Living Hx Family Cardiac Disorders: No Hx Family Respiratory Disorders: Yes Hx Family Cancer: Yes Hx Family GI Disorders: Yes Hx Family Endocrine Disorder: No Hx Family Neuromuscular Disorders: No Hx Family Neurologic Disorders: No Hx Family HEENT Disorders: No Hx Family Autoimmune Disorders: No Internal Medicine - H&P: Meds Omeprazole [Prilosec] 40 mg PO DAILY 01/08/15 [History] Warfarin [Coumadin] 4 mg PO 1800 01/08/15 [History] Furosemide [Lasix] 20 mg PO DAILY 10/01/15 [History] cephALEXin [Keflex] 500 mg PO QID #40 capsule 11/25/17 [Rx] 3 Allergy/AdvReac Type Severity Reaction Status Date / Time No Known Allergies Allergy Verified 09/12/16 21:21 All Systems PM: A 10-system review of systems was performed and is negative for pertinent findings except as documented above in the HPI. - Constitutional Constitutional: no chills, no fever(s), no night sweats - EENT Eyes: no change in vision, no discharge, no pain, no photophobia Ears: no ear discharge, no ear pain, no tinnitus Nose, mouth and throat: no dysphagia, no nasal discharge, no neck pain, no sore throat - Cardiovascular Cardiovascular ROS IM: no chest pain, no diaphoresis, no dyspnea, no lightheadedness, no palpitations, no syncope - Respiratory Respiratory: no cough, no dyspnea, no wheezing, no excessive phlegm production - Gastrointestinal Gastrointestinal: no abdominal pain, no diarrhea, no hematemesis, no hematochezia, no melena, no nausea, no vomiting - Genitourinary Genitourinary: no change in urinary stream, no dysuria, no flank pain, no hematuria - Musculoskeletal Musculoskeletal ROS IM: no numbness, no tingling - Integumentary Integumentary IM: no rash, no unusual bruising - Neurological Neurological ROS: no confusion, no convulsions, no focal weakness, no numbness, no tingling, no tremor(s) - Hematologic/Lymphatic Hematologic/Lymphatic: no easy bruising - Constitutional Vitals: Temp Pulse Resp BP Pulse Ox 98.4 F 83 16 122/64 96 12/06/17 07:58 12/06/17 07:58 12/06/17 07:58 12/06/17 07:58 12/06/17 08:22 General appearance: Present: cooperative, A&O X 3, pleasant, no acute distress, obese, answers questions appropriately - Head Head exam: Present: atraumatic, normocephalic - Eye Eye exam: Present: PERRL, conjuntiva pink, sclera anicteric Pupils: Present: PERRL - Neck Neck exam general surgery: Present: supple, trachea midline. Absent: lymphadenopathy - Respiratory Respiratory exam: Present: CTAB. Absent: accessory muscle use, rales, rhonchi, wheezes - Cardiovascular Cardiovascular exam: Present: irregular rhythm, +S1, +S2. Absent: diastolic murmur, gallop, rubs, systolic murmur - GI/Abdominal GI/Abdominal exam: Present: normal bowel sounds, soft, no peritoneal signs. Absent: distended, tenderness - Extremities Exam Extremities exam: Present: warm, radial pulses palpable and symmetrical. Absent : calf tenderness, cyanotic, pedal edema - Neurological Exam Neurological exam: Present: CN II-XII intact, oriented X3, no focal deficits. Absent: pronater drift, facial droop, speech deficit - Skin Skin exam: Present: dry, intact Internal Med - H&P Results - Labs CBC & Chem 7: 12/06/17 06:00 12/06/17 06:00 Labs: Short CBC 12/06/17 Range/Units 06:00 WBC 8.6 (4.3-11.1) K/mcL Hgb 13.1 (11.5-15.4) g/dL Hct 40.8 (35.3-44.9) % Plt Count 206 (140-400) K/mcL Neutrophils # 7.1 (1.6-8.9) K/mcL BMP 12/06/17 06:00 Sodium 139 Potassium 3.5 Chloride 99 Carbon Dioxide 34 H BUN 14 Creatinine 0.85 Glucose 164 H Calcium 9.0 Cardiac Enzymes 12/05/17 12/06/17 Range/Units 23:10 06:00 Troponin I < 0.03 < 0.03 (< 0.04) ng/mL
--- NOTE | 2017-12-06 12:20 | Discharge Summary ---
Orders not resulted at time of discharge: Pending orders 12/07/17 04:00 INR/PT [Prothrombin Time INR] [COAG] AM 0400 12/08/17 04:00 INR/PT [Prothrombin Time INR] [COAG] AM 0400 12/09/17 04:00 INR/PT [Prothrombin Time INR] [COAG] AM 0400 Date of Encounter: 12/06/17 Time of Encounter: 12:17 - Discharge Diagnosis (1) Atrial fibrillation Priority: Secondary Status: Chronic Comments: continue coumadin. follow up with PCP. rate and rythm stable. Qualifiers: Atrial fibrillation type: chronic Qualified Code(s): I48.2 - Chronic atrial fibrillation (2) COPD (chronic obstructive pulmonary disease) Priority: Primary Status: Chronic Comments: continue home nebulizers. follow up with PCP Qualifiers: COPD type: unspecified COPD Qualified Code(s): J44.9 - Chronic obstructive pulmonary disease, unspecified (3) Congestive heart failure Priority: Primary Status: Acute Comments: improved. continue lasix. follow up with PCP in 1 week. Qualifiers: Heart failure type: unspecified Heart failure chronicity: unspecified Qualified Code(s): I50.9 - Heart failure, unspecified Hospital course: Ms. Andrea is a 82 year old female improving and to discharge to home with daughter today. instructed to follow up with PCP within 1 week. Discharge discussed with: patient, nurse - Time Spent with Patient Total time spent providing and/or coordinating discharge services: Less than 30 minutes - Discharge Medications Home Medications: Omeprazole [PriLOSEC] 40 mg PO DAILY 01/08/15 [History] Warfarin [Coumadin] 4 mg PO 1800 01/08/15 [History] Furosemide [Lasix] 20 mg PO DAILY 10/01/15 [History] cephALEXin [Keflex] 500 mg PO QID #40 capsule 11/25/17 [Rx] Allergies/Adverse Reactions: 3 Allergy/AdvReac Type Severity Reaction Status Date / Time No Known Allergies Allergy Verified 09/12/16 21:21 Date of admission: 12/05/17 20:07 Primary care physician: Jaiden Hargrove CNP Discharging clinician: Josef Sewell Anticipated date of discharge: 12/06/17 - Constitutional Vitals: see exam dated todays date on the H&P Temp Pulse Resp BP Pulse Ox 98.4 F 83 16 122/64 96 12/06/17 07:58 12/06/17 07:58 12/06/17 07:58 12/06/17 07:58 12/06/17 08:22 General appearance: Present: cooperative, A&O X 3, pleasant, no acute distress, obese, answers questions appropriately - Patient Status Disposition: Home, Self-Care Condition: Good Functional capacity at discharge: independent ambulation Overall status at discharge: patient is progressing back to baseline - Discharge Instructions Follow Up With: Jaiden Hargrove, T[employer] TEACHER [Primary Care Provider] - - Diet and Activity Activity: increase activity as tolerated Diet: advance to your usual diet
[2017-12-06 13:57] VITALS: BP 114/74
[2017-12-06] MEDS ORDERED: *HR* Warfarin 4 MG TABLET PO SCH (18:00)
--- NOTE | 2017-12-09 17:43 | Electrocardiograph Report ---
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
== END 2017-12-06 12:54 | disposition home or self-care (01) ==
LOC: INPGRE 16:25 → EMEROOGRE 16:25 → INPGRE 20:41

== ENCOUNTER 2019-11-24 10:21 | Inpatient (IN) ==
[2019-11-24 11:32] LABS: Basophils % 0.4 %; Eosinophils % 0.4 %; Hematocrit 40.4 % (35.3-44.9); Hemoglobin 12.9 g/dL (11.5-15.4); Immature Granulocytes % 0.5 % (0-4); Lymphocytes # 0.4 K/mcL (0.6-4.6); Lymphocytes % 6.6 %; Mean Corpuscular HGB Conc 31.9 g/dL (31.6-35.5); Mean Corpuscular Hemoglobin 26.9 pg (28.0-33.3); Mean Corpuscular Volume 84.3 fL (83.0-100.0); Monocytes # 0.3 K/mcL (0.0-1.3); Monocytes % 5.9 %; Neutrophils # 4.9 K/mcL (1.6-8.9); Platelet Count 207 K/mcL (140-400); Red Blood Count 4.79 M/mcL (3.82-4.97); Red Cell Distribution Width 15.4 % (11.5-14.5); Segmented Neutrophils % 86.2 %; White Blood Count 5.6 K/mcL (4.3-11.1)
[2019-11-24 11:45] LABS: BUN/Creatinine Ratio 18 (6-26); Blood Urea Nitrogen 16 mg/dL (8-23); Calcium 8.3 mg/dL (8.6-10.3); Carbon Dioxide 34 mEq/L (23-29); Chloride 99 mEq/L (98-107); Glucose 118 mg/dL (70-105); Osmolality,Calculated 296 (280-300); Potassium 2.8 mEq/L (3.5-5.1); Sodium 142 mEq/L (136-145); eGFR For African Americans > 60 (> 60); eGFR For Non-African Americans > 60 (> 60)
[2019-11-24 11:50] LABS: Troponin I 0.03 ng/mL (< 0.04)
[2019-11-24 12:06] LABS: Bilirubin,Urine Negative (Negative); Blood,Urine Moderate (Negative); Clarity,Urine Clear (Clear); Color,Urine Yellow (Yellow); Glucose,Urine (UA) Normal (Normal); Ketones,Urine Negative (Negative); Leukocyte Esterase,Urine Trace (Negative); Nitrite,Urine Positive (Negative); PH,Urine 6.5 pH Units (5.0-8.0); Protein,Urine Negative (Neg-Trace); Urobilinogen,Urine Normal (Normal)
[2019-11-24 12:15] LABS: Bacteria,Urine Moderate per hpf (None-Few); Squamous Epithelial Cell,Urine Few per hpf (None-Few)
[2019-11-24] MEDS ORDERED: Azithromycin 500 MG in 0.9 % Sodium Chloride 250 ML IVPB ONE (12:19)
[2019-11-24] MEDS ORDERED: cefTRIAXone 1,000 MG in 0.9 % Sodium Chloride Mini Bag 100 ML IVPB ONE (12:20)
[2019-11-24] MEDS: 0.9 % Sodium Chloride w KCl 40 MEQ/1,000 ML MLS IVC SCH (15:00)
[2019-11-24 15:21] LABS: Adenovirus Not Detected (Not Detect); Bordetella Pertussis Not Detected (Not Detect); Chlamydophila pneumoniae Not Detected (Not Detect); Coronavirus 229E Not Detected (Not Detect); Coronavirus HKU1 Not Detected (Not Detect); Coronavirus NL63 Not Detected (Not Detect); Coronavirus OC43 Not Detected (Not Detect); Human Metapneumovirus Not Detected (Not Detect); Human Rhinovirus/Enterovirus Not Detected (Not Detect); Influenza A Subtype 2009 H1 Not Detected (Not Detect); Influenza B Not Detected (Not Detect); Mycoplasma pneumoniae Not Detected (Not Detect); Parainfluenza Virus 1 Not Detected (Not Detect); Parainfluenza Virus 2 Not Detected (Not Detect); Parainfluenza Virus 3 Not Detected (Not Detect); Parainfluenza Virus 4 Not Detected (Not Detect); Respiratory Syncytial Virus Not Detected (Not Detect)
[2019-11-24 17:11] LABS: INR 2.7; Prothrombin Time 30.8 Seconds (9.4-12.1)
[2019-11-24] MEDS ORDERED: *HR* Warfarin 2 MG TABLET PO ONE (18:00)
[2019-11-24] MEDS ORDERED: Warfarin perPT PO PRN (18:00)
[2019-11-24] MEDS ORDERED: *HR* Warfarin 5 MG TABLET PO SCH ×2 (18:00)
[2019-11-24] MEDS: MethylPREDNISolone 40 MG/ML VIAL IVP SCH ×2 (18:28→23:35)
[2019-11-24] MEDS: Ipratropium/Albuterol Neb 3 ML IH SCH ×3 (20:33→23:30)
[2019-11-25] MEDS: Ipratropium/Albuterol Neb 3 ML IH SCH ×5 (05:04→19:48)
[2019-11-25] MEDS: 0.9 % Sodium Chloride w KCl 40 MEQ/1,000 ML MLS IVC SCH ×2 (05:05→19:47)
[2019-11-25] MEDS: MethylPREDNISolone 40 MG/ML VIAL IVP SCH ×2 (05:05→16:33)
[2019-11-25 05:53] LABS: Hemoglobin 12.5 g/dL (11.5-15.4); Immature Granulocytes % 0.8 % (0-4); Lymphocytes # 0.3 K/mcL (0.6-4.6); Lymphocytes % 5.3 %; Mean Corpuscular HGB Conc 31.3 g/dL (31.6-35.5); Mean Corpuscular Hemoglobin 26.8 pg (28.0-33.3); Mean Corpuscular Volume 85.7 fL (83.0-100.0); Mean Platelet Volume 10.3 fL (9.4-12.4); Monocytes # 0.1 K/mcL (0.0-1.3); Monocytes % 1.6 %; Neutrophils # 4.5 K/mcL (1.6-8.9); Platelet Count 177 K/mcL (140-400); Red Blood Count 4.67 M/mcL (3.82-4.97); Red Cell Distribution Width 15.6 % (11.5-14.5); Segmented Neutrophils % 92.3 %; White Blood Count 4.9 K/mcL (4.3-11.1)
[2019-11-25 05:57] LABS: INR 3.2; Prothrombin Time 36.5 Seconds (9.4-12.1)
[2019-11-25 06:18] LABS: Albumin 3.7 g/dL (3.5-5.7); Albumin/Globulin Ratio 1.2 (1.1-2.2); Bilirubin,Total 0.5 mg/dL (0.3-1.0); Calcium 7.9 mg/dL (8.6-10.3); Globulin 3.2 g/dL (2.4-3.5); Potassium 3.8 mEq/L (3.5-5.1); Total Protein 6.9 g/dL (6.4-8.9)
[2019-11-25] MEDS ORDERED: Furosemide 20 MG TABLET PO SCH (09:00)
[2019-11-25] MEDS ORDERED: levoFLOXacin 750 MG/150 ML 750 MG/150 ML BAG IVPB SCH (09:00)
[2019-11-25] MEDS: Magnesium Oxide 400 MG TABLET PO SCH ×2 (12:44→19:57)
[2019-11-25] MEDS ORDERED: *HR* Warfarin 1 MG TABLET PO ONE (18:00)
[2019-11-26] MEDS: Ipratropium/Albuterol Neb 3 ML IH SCH ×6 (00:31→19:56)
[2019-11-26] MEDS: MethylPREDNISolone 40 MG/ML VIAL IVP SCH ×3 (00:31→15:35)
[2019-11-26] MEDS ORDERED: 0.9 % Sodium Chloride w KCl 40 MEQ/1,000 ML MLS IVC SCH (02:52)
[2019-11-26] MEDS ORDERED: Naloxone 0.4 MG/ML INJ IVP PRN (02:52)
[2019-11-26 05:37] LABS: Basophils % 0.1 %; Hematocrit 41.4 % (35.3-44.9); Hemoglobin 12.7 g/dL (11.5-15.4); Immature Granulocytes % 0.8 % (0-4); Lymphocytes # 0.3 K/mcL (0.6-4.6); Lymphocytes % 2.4 %; Mean Corpuscular HGB Conc 30.7 g/dL (31.6-35.5); Mean Corpuscular Hemoglobin 26.8 pg (28.0-33.3); Mean Corpuscular Volume 87.3 fL (83.0-100.0); Mean Platelet Volume 10.3 fL (9.4-12.4); Monocytes # 0.2 K/mcL (0.0-1.3); Platelet Count 196 K/mcL (140-400); Red Blood Count 4.74 M/mcL (3.82-4.97); Red Cell Distribution Width 15.9 % (11.5-14.5); Segmented Neutrophils % 94.7 %; White Blood Count 11.9 K/mcL (4.3-11.1)
[2019-11-26 05:42] LABS: INR 3.2; Neutrophils # 11.3 K/mcL (1.6-8.9); Prothrombin Time 36.6 Seconds (9.4-12.1)
[2019-11-26 06:09] LABS: Calcium 8.6 mg/dL (8.6-10.3); Potassium 4.9 mEq/L (3.5-5.1)
[2019-11-26] MEDS: Furosemide 20 MG TABLET PO SCH (08:41)
[2019-11-26] MEDS: Magnesium Oxide 400 MG TABLET PO SCH ×2 (08:41→20:29)
[2019-11-26] MEDS ORDERED: Furosemide 20 MG/2 ML VIAL IVP ONE (10:47)
[2019-11-26] MEDS ORDERED: Perflutren Lipid Microsphere 1.3 ML in 0.9 % Sodium Chloride 8.7 ML IVP PRN (10:49)
[2019-11-26] MEDS: Gabapentin 300 MG CAPSULE PO SCH ×2 (15:35→20:29)
[2019-11-26] MEDS ORDERED: Warfarin perPT PO PRN (18:00)
[2019-11-26] MEDS ORDERED: *HR* Warfarin 1 MG TABLET PO ONE (18:00)
[2019-11-27] MEDS: Ipratropium/Albuterol Neb 3 ML IH SCH ×7 (00:02→23:57)
[2019-11-27] MEDS: MethylPREDNISolone 40 MG/ML VIAL IVP SCH ×2 (00:06→09:11)
[2019-11-27 05:26] LABS: Hematocrit 41.3 % (35.3-44.9); Hemoglobin 12.8 g/dL (11.5-15.4); Immature Granulocytes % 0.9 % (0-4); Lymphocytes # 0.3 K/mcL (0.6-4.6); Lymphocytes % 3.5 %; Mean Corpuscular Volume 87.1 fL (83.0-100.0); Mean Platelet Volume 10.8 fL (9.4-12.4); Monocytes # 0.3 K/mcL (0.0-1.3); Neutrophils # 8.5 K/mcL (1.6-8.9); Platelet Count 199 K/mcL (140-400); Red Blood Count 4.74 M/mcL (3.82-4.97); Segmented Neutrophils % 92.6 %; White Blood Count 9.1 K/mcL (4.3-11.1)
[2019-11-27 05:30] LABS: Prothrombin Time 22.9 Seconds (9.4-12.1)
[2019-11-27 05:40] LABS: Calcium 8.8 mg/dL (8.6-10.3); Potassium 5.6 mEq/L (3.5-5.1)
[2019-11-27] MEDS ORDERED: levoFLOXacin 750 MG/150 ML 750 MG/150 ML BAG IVPB SCH ×2 (09:00)
[2019-11-27] MEDS ORDERED: Ipratropium/Albuterol Neb 3 ML IH PRN (09:06)
[2019-11-27] MEDS: Furosemide 20 MG TABLET PO SCH (09:11)
[2019-11-27] MEDS: Gabapentin 300 MG CAPSULE PO SCH ×3 (09:11→19:02)
[2019-11-27] MEDS: Magnesium Oxide 400 MG TABLET PO SCH ×2 (09:11→20:24)
[2019-11-27] MEDS ORDERED: Furosemide 20 MG/2 ML VIAL IVP ONE (10:44)
[2019-11-27] MEDS ORDERED: *HR* Warfarin 4 MG TABLET PO ONE (18:00)
[2019-11-27] MEDS: Budesonide/Formoterol 160/4.5 1 PUFF INH IH SCH (20:05)
[2019-11-28] MEDS: Ipratropium/Albuterol Neb 3 ML IH SCH ×4 (03:58→14:54)
[2019-11-28 05:27] LABS: Hematocrit 40.1 % (35.3-44.9); Hemoglobin 12.3 g/dL (11.5-15.4); Mean Corpuscular HGB Conc 30.7 g/dL (31.6-35.5); Mean Corpuscular Hemoglobin 26.9 pg (28.0-33.3); Mean Corpuscular Volume 87.6 fL (83.0-100.0); Mean Platelet Volume 10.4 fL (9.4-12.4); Platelet Count 179 K/mcL (140-400); Red Blood Count 4.58 M/mcL (3.82-4.97); Red Cell Distribution Width 15.9 % (11.5-14.5)
[2019-11-28 05:30] LABS: INR 1.7; Prothrombin Time 19.6 Seconds (9.4-12.1)
[2019-11-28 05:43] LABS: Albumin 3.5 g/dL (3.5-5.7); Albumin/Globulin Ratio 1.3 (1.1-2.2); Bilirubin,Total 0.5 mg/dL (0.3-1.0); Calcium 8.5 mg/dL (8.6-10.3); Globulin 2.8 g/dL (2.4-3.5); Potassium 4.9 mEq/L (3.5-5.1); Total Protein 6.3 g/dL (6.4-8.9)
[2019-11-28 06:13] LABS: Thyroid Stimulating Hormone 2.693 mcIU/mL (0.340-5.600)
[2019-11-28] MEDS: Budesonide/Formoterol 160/4.5 1 PUFF INH IH SCH (07:15)
[2019-11-28] MEDS: Magnesium Oxide 400 MG TABLET PO SCH (08:14)
[2019-11-28] MEDS: Gabapentin 300 MG CAPSULE PO SCH ×2 (08:14→15:03)
[2019-11-28] MEDS: Furosemide 20 MG TABLET PO SCH (08:15)
[2019-11-28] MEDS ORDERED: levoFLOXacin 750 MG TABLET PO SCH (09:00)
[2019-11-28] MEDS ORDERED: predniSONE 20 MG TABLET PO SCH (09:00)
[2019-11-28 12:03] VITALS: BP 139/87
[2019-11-28] MEDS ORDERED: *HR* Warfarin 4 MG TABLET PO ONE (18:00)
== END 2019-11-28 15:50 | disposition home or self-care (01) | DRG 194 ==
LOC: INPGRE 10:21 → EMEROOGRE 10:21 → INPGRE 15:57
PROVIDERS: ADMIT Family Medicine; ATTEND Family Medicine

== ENCOUNTER 2020-09-11 09:35 | Inpatient (IN) ==
[2020-09-11] MEDS ORDERED: Ipratropium/Albuterol Neb 3 ML IH ONE (10:02)
[2020-09-11] MEDS ORDERED: methylPREDNISolone 125 MG/2 ML VIAL IVP ONE (10:02)
[2020-09-11 10:14] LABS: Basophils % 0.7 %; Eosinophils # 0.1 K/mcL (0.0-0.6); Eosinophils % 1.8 %; Hematocrit 43.8 % (35.3-44.9); Hemoglobin 13.3 g/dL (11.5-15.4); Immature Granulocytes % 1.1 % (0-4); Lymphocytes # 0.4 K/mcL (0.6-4.6); Lymphocytes % 8.7 %; Mean Corpuscular HGB Conc 30.4 g/dL (31.6-35.5); Mean Corpuscular Hemoglobin 26.9 pg (28.0-33.3); Mean Corpuscular Volume 88.5 fL (83.0-100.0); Mean Platelet Volume 10.1 fL (9.4-12.4); Monocytes # 0.5 K/mcL (0.0-1.3); Monocytes % 11.3 %; Neutrophils # 3.4 K/mcL (1.6-8.9); Platelet Count 215 K/mcL (140-400); Red Blood Count 4.95 M/mcL (3.82-4.97); Red Cell Distribution Width 16.4 % (11.5-14.5); Segmented Neutrophils % 76.4 %; White Blood Count 4.5 K/mcL (4.3-11.1)
[2020-09-11 10:16] LABS: Prothrombin Time 33.8 Seconds (9.4-12.1)
[2020-09-11 10:22] LABS: BUN/Creatinine Ratio 22 (6-26); Blood Urea Nitrogen 20 mg/dL (8-23); Calcium 8.7 mg/dL (8.6-10.3); Carbon Dioxide 35 mEq/L (23-29); Chloride 102 mEq/L (98-107); Glucose 119 mg/dL (70-105); Osmolality,Calculated 300 (280-300); Potassium 3.2 mEq/L (3.5-5.1); Sodium 143 mEq/L (136-145); eGFR For African Americans > 60 (> 60); eGFR For Non-African Americans 59 (> 60)
[2020-09-11 10:25] LABS: Troponin I < 0.03 ng/mL (< 0.04)
[2020-09-11] MEDS ORDERED: Furosemide 40 MG/4 ML VIAL IVP ONE (10:59)
[2020-09-11] MEDS ORDERED: Naloxone 0.4 MG/ML INJ IVP PRN (12:04)
[2020-09-11] MEDS ORDERED: Ondansetron ODT 4 MG TAB.RAPDIS SL PRN (12:04)
[2020-09-11] MEDS ORDERED: Perflutren Lipid Microsphere 1.3 ML in 0.9 % Sodium Chloride 8.7 ML IVP PRN (12:06)
[2020-09-11] MEDS ORDERED: tiZANidine 4 MG TABLET PO SCH (12:15)
[2020-09-11] MEDS: Gabapentin 300 MG CAPSULE PO SCH ×2 (14:38→19:42)
[2020-09-11] MEDS ORDERED: 0.9 % Sodium Chloride 250 ML ONE (15:07)
[2020-09-11] MEDS ORDERED: *HR* Warfarin 2.5 MG TABLET PO ONE (18:00)
[2020-09-11] MEDS ORDERED: *HR* Warfarin 1 MG TABLET PO ONE ×2 (18:00)
[2020-09-11] MEDS ORDERED: Warfarin perPT PO PRN (18:00)
[2020-09-11] MEDS: Furosemide 20 MG/2 ML VIAL IVP SCH (19:41)
[2020-09-11] MEDS: Ipratropium/Albuterol Neb 3 ML IH PRN (20:57)
[2020-09-11] MEDS: tiZANidine 4 MG TABLET PO SCH (23:28)
[2020-09-12] MEDS: Ipratropium/Albuterol Neb 3 ML IH PRN ×3 (04:31→21:19)
[2020-09-12 05:57] LABS: Hematocrit 40.7 % (35.3-44.9); Hemoglobin 12.2 g/dL (11.5-15.4); Mean Corpuscular Hemoglobin 26.7 pg (28.0-33.3); Mean Corpuscular Volume 89.1 fL (83.0-100.0); Mean Platelet Volume 10.5 fL (9.4-12.4); Platelet Count 182 K/mcL (140-400); Red Blood Count 4.57 M/mcL (3.82-4.97); Red Cell Distribution Width 16.5 % (11.5-14.5); White Blood Count 4.2 K/mcL (4.3-11.1)
[2020-09-12 06:03] LABS: INR 3.8; Prothrombin Time 42.6 Seconds (9.4-12.1)
[2020-09-12 06:08] LABS: BUN/Creatinine Ratio 23 (6-26); Blood Urea Nitrogen 22 mg/dL (8-23); Calcium 8.2 mg/dL (8.6-10.3); Carbon Dioxide 35 mEq/L (23-29); Chloride 101 mEq/L (98-107); Glucose 181 mg/dL (70-105); Magnesium 1.5 mg/dL (1.6-2.6); Osmolality,Calculated 302 (280-300); Potassium 3.7 mEq/L (3.5-5.1); Sodium 142 mEq/L (136-145); eGFR For African Americans > 60 (> 60); eGFR For Non-African Americans 56 (> 60)
[2020-09-12] MEDS: Loratadine 10 MG TABLET PO SCH (09:12)
[2020-09-12] MEDS: Gabapentin 300 MG CAPSULE PO SCH ×3 (09:12→21:30)
[2020-09-12] MEDS: tiZANidine 4 MG TABLET PO SCH ×3 (09:12→21:31)
[2020-09-12] MEDS: Furosemide 20 MG/2 ML VIAL IVP SCH ×2 (09:13→21:30)
[2020-09-12] MEDS ORDERED: Ipratropium/Albuterol Neb 3 ML IH SCH (16:00)
[2020-09-12 19:26] LABS: Estimated Average Glucose 120 mg/dl; Hemoglobin A1C 5.8 %
[2020-09-12] MEDS: Acetaminophen 325 MG TABLET PO PRN (21:31)
[2020-09-13 05:12] LABS: Hematocrit 40.3 % (35.3-44.9); Hemoglobin 11.7 g/dL (11.5-15.4); Mean Corpuscular Hemoglobin 26.8 pg (28.0-33.3); Mean Corpuscular Volume 92.4 fL (83.0-100.0); Mean Platelet Volume 10.2 fL (9.4-12.4); Platelet Count 179 K/mcL (140-400); Red Blood Count 4.36 M/mcL (3.82-4.97); Red Cell Distribution Width 16.7 % (11.5-14.5); White Blood Count 5.8 K/mcL (4.3-11.1)
[2020-09-13 05:19] LABS: INR 3.6; Prothrombin Time 39.9 Seconds (9.4-12.1)
[2020-09-13 05:29] LABS: Albumin 3.1 g/dL (3.5-5.7); Albumin/Globulin Ratio 0.9 (1.1-2.2); Bilirubin,Total 0.6 mg/dL (0.3-1.0); Calcium 8.1 mg/dL (8.6-10.3); Globulin 3.3 g/dL (2.4-3.5); Magnesium 1.7 mg/dL (1.6-2.6); Potassium 4.1 mEq/L (3.5-5.1); Total Protein 6.4 g/dL (6.4-8.9)
[2020-09-13] MEDS: Furosemide 20 MG/2 ML VIAL IVP SCH ×2 (08:15→21:23)
[2020-09-13] MEDS: tiZANidine 4 MG TABLET PO SCH ×3 (08:15→22:15)
[2020-09-13] MEDS: Gabapentin 300 MG CAPSULE PO SCH ×3 (08:15→21:21)
[2020-09-13] MEDS: Loratadine 10 MG TABLET PO SCH (08:15)
[2020-09-13] MEDS: Ipratropium/Albuterol Neb 3 ML IH PRN (08:28)
[2020-09-13] MEDS: Ipratropium/Albuterol Neb 3 ML IH SCH ×3 (15:14→21:29)
[2020-09-13] MEDS: Nystatin POWDER 30 GM BOTTLE TP SCH ×2 (15:17→21:21)
[2020-09-13] MEDS ORDERED: *HR* Warfarin 1 MG TABLET PO ONE (18:00)
[2020-09-13] MEDS: Acetaminophen 325 MG TABLET PO PRN (21:22)
[2020-09-14] MEDS: Ipratropium/Albuterol Neb 3 ML IH SCH ×4 (03:30→21:32)
[2020-09-14 06:24] LABS: INR 2.2; Prothrombin Time 24.6 Seconds (9.4-12.1)
[2020-09-14] MEDS: tiZANidine 4 MG TABLET PO SCH (08:57)
[2020-09-14] MEDS: Spironolactone 25 MG TABLET PO SCH (08:57)
[2020-09-14] MEDS: Loratadine 10 MG TABLET PO SCH (08:57)
[2020-09-14] MEDS: Gabapentin 300 MG CAPSULE PO SCH (08:57)
[2020-09-14] MEDS: Furosemide 20 MG/2 ML VIAL IVP SCH ×2 (08:57→20:25)
[2020-09-14] MEDS: Nystatin POWDER 30 GM BOTTLE TP SCH ×3 (09:10→20:26)
[2020-09-14] MEDS ORDERED: Furosemide 40 MG/4 ML VIAL IVP ONE ×2 (12:04)
[2020-09-14] MEDS ORDERED: tiZANidine 4 MG TABLET PO PRN (14:55)
[2020-09-14] MEDS: Acetylcysteine 10% 2 ML INHSOL IH SCH ×2 (16:19→21:32)
[2020-09-14 16:47] LABS: ABG Base Excess 8 mEq/L (-2 to 3); ABG HCO3 37 mEq/L (21-27); ABG Oxygen Saturation 89 % (95-98); ABG PCO2 72 mmHg (35-45); ABG PH 7.32 pH Units (7.32-7.45); ABG PO2 64 mmHg (85-104); ABG TCO2 39 mEq/L (20-26)
[2020-09-14] MEDS ORDERED: *HR* Warfarin 3 MG TABLET PO ONE (18:00)
[2020-09-14 21:15] LABS: Bilirubin,Urine Negative (Negative); Blood,Urine Moderate (Negative); Clarity,Urine Cloudy (Clear); Color,Urine Yellow (Yellow); Glucose,Urine (UA) Normal (Normal); Ketones,Urine Negative (Negative); Leukocyte Esterase,Urine Large (Negative); Nitrite,Urine Negative (Negative); Protein,Urine Negative (Neg-Trace); Urobilinogen,Urine Normal (Normal)
[2020-09-14 21:18] LABS: Bacteria,Urine Present per hpf (None-Few); RBC,Urine Present per hpf (0-3); Squamous Epithelial Cell,Urine Many per hpf (None-Few); WBC,Urine Present per hpf (0-3)
[2020-09-14] MEDS ORDERED: *HR* LORazepam 2 MG/ML VIAL IVP ONE (22:19)
[2020-09-15] MEDS: Acetylcysteine 10% 2 ML INHSOL IH SCH ×5 (04:13→21:41)
[2020-09-15] MEDS: Ipratropium/Albuterol Neb 3 ML IH SCH ×4 (04:13→21:40)
[2020-09-15 05:10] LABS: Hematocrit 40.1 % (35.3-44.9); Hemoglobin 11.9 g/dL (11.5-15.4); Mean Corpuscular HGB Conc 29.7 g/dL (31.6-35.5); Mean Corpuscular Hemoglobin 26.9 pg (28.0-33.3); Mean Corpuscular Volume 90.5 fL (83.0-100.0); Mean Platelet Volume 9.8 fL (9.4-12.4); Platelet Count 168 K/mcL (140-400); Red Blood Count 4.43 M/mcL (3.82-4.97); Red Cell Distribution Width 15.9 % (11.5-14.5); White Blood Count 6.4 K/mcL (4.3-11.1)
[2020-09-15 05:14] LABS: VBG HCO3 37 mEq/L (21-27); VBG PCO2 61 mmHg (41-51); VBG PH 7.39 pH Units (7.32-7.42); VBG PO2 57 mmHg (25-50)
[2020-09-15 05:18] LABS: INR 1.6; Prothrombin Time 18.3 Seconds (9.4-12.1)
[2020-09-15 05:36] LABS: Alanine Aminotransferase 12 Units/L (7-52); Albumin 3.1 g/dL (3.5-5.7); Alkaline Phosphatase 96 Units/L (34-104); Aspartate Amino Transferase 13 Units/L (13-39); BUN/Creatinine Ratio 31 (6-26); Bilirubin,Total 1.3 mg/dL (0.3-1.0); Blood Urea Nitrogen 26 mg/dL (8-23); Calcium 8.1 mg/dL (8.6-10.3); Carbon Dioxide 40 mEq/L (23-29); Chloride 97 mEq/L (98-107); Globulin 3.1 g/dL (2.4-3.5); Glucose 100 mg/dL (70-105); Magnesium 1.4 mg/dL (1.6-2.6); Osmolality,Calculated 297 (280-300); Potassium 3.8 mEq/L (3.5-5.1); Sodium 141 mEq/L (136-145); Total Protein 6.2 g/dL (6.4-8.9); eGFR For African Americans > 60 (> 60); eGFR For Non-African Americans > 60 (> 60)
[2020-09-15] MEDS: Loratadine 10 MG TABLET PO SCH (10:11)
[2020-09-15] MEDS: acetaZOLAMIDE 250 MG TABLET PO SCH (10:11)
[2020-09-15] MEDS: Spironolactone 25 MG TABLET PO SCH (10:11)
[2020-09-15] MEDS: Furosemide 20 MG/2 ML VIAL IVP SCH ×2 (10:11→20:51)
[2020-09-15] MEDS: Nystatin POWDER 30 GM BOTTLE TP SCH ×3 (10:16→20:52)
[2020-09-15] MEDS ORDERED: *HR* LORazepam 2 MG/ML VIAL IVP PRN (11:26)
[2020-09-15] MEDS: cefTRIAXone 1,000 MG in Water for inj. (sterile) 10 ML IVP SCH (14:26)
[2020-09-15] MEDS: Gabapentin 300 MG CAPSULE PO SCH ×2 (15:42→20:50)
[2020-09-15] MEDS: Acetaminophen 325 MG TABLET PO PRN (20:50)
[2020-09-16] MEDS: Ipratropium/Albuterol Neb 3 ML IH SCH ×3 (03:22→16:37)
[2020-09-16] MEDS: Acetylcysteine 10% 2 ML INHSOL IH SCH (03:23)
[2020-09-16 05:07] LABS: Hematocrit 38.5 % (35.3-44.9); Hemoglobin 11.3 g/dL (11.5-15.4); Mean Corpuscular HGB Conc 29.4 g/dL (31.6-35.5); Mean Corpuscular Hemoglobin 26.5 pg (28.0-33.3); Mean Corpuscular Volume 90.4 fL (83.0-100.0); Mean Platelet Volume 10.2 fL (9.4-12.4); Platelet Count 167 K/mcL (140-400); Red Blood Count 4.26 M/mcL (3.82-4.97); Red Cell Distribution Width 15.6 % (11.5-14.5); White Blood Count 5.6 K/mcL (4.3-11.1)
[2020-09-16 05:09] LABS: INR 1.6; Prothrombin Time 18.4 Seconds (9.4-12.1)
[2020-09-16 05:34] LABS: BUN/Creatinine Ratio 26 (6-26); Blood Urea Nitrogen 23 mg/dL (8-23); Calcium 8.2 mg/dL (8.6-10.3); Carbon Dioxide 41 mEq/L (23-29); Chloride 95 mEq/L (98-107); Glucose 105 mg/dL (70-105); Osmolality,Calculated 292 (280-300); Potassium 3.4 mEq/L (3.5-5.1); Sodium 139 mEq/L (136-145); eGFR For African Americans > 60 (> 60); eGFR For Non-African Americans > 60 (> 60)
[2020-09-16] MEDS: Loratadine 10 MG TABLET PO SCH (09:28)
[2020-09-16] MEDS: Spironolactone 25 MG TABLET PO SCH (09:28)
[2020-09-16] MEDS: Gabapentin 300 MG CAPSULE PO SCH ×2 (09:28→16:48)
[2020-09-16] MEDS: cefTRIAXone 1,000 MG in Water for inj. (sterile) 10 ML IVP SCH (09:29)
[2020-09-16] MEDS: Nystatin POWDER 30 GM BOTTLE TP SCH ×2 (09:30→16:48)
[2020-09-16] MEDS: acetaZOLAMIDE 250 MG TABLET PO SCH (09:32)
[2020-09-16] MEDS: Furosemide 20 MG/2 ML VIAL IVP SCH (09:36)
[2020-09-16 16:12] VITALS: BP 128/66
[2020-09-16] MEDS ORDERED: Furosemide 40 MG TABLET PO SCH (18:00)
[2020-09-16] MEDS ORDERED: *HR* Warfarin 3 MG TABLET PO ONE (18:00)
[2020-09-16] MEDS ORDERED: acetaZOLAMIDE 250 MG TABLET PO SCH ×2 (18:00→21:00)
[2020-09-16] MEDS ORDERED: *HR* Warfarin 4 MG TABLET PO ONE (18:00)
== END 2020-09-16 19:58 | disposition other institution (70) | DRG 291 ==
LOC: EMEROOGRE 09:35 → INPGRE 09:35
PROVIDERS: ADMIT Family Medicine; ATTEND Family Medicine

== ENCOUNTER 2020-09-16 19:30 | Inpatient (IN) ==
[2020-09-16] MEDS ORDERED: *HR* LORazepam 2 MG/ML VIAL IVP PRN (19:52)
[2020-09-16] MEDS ORDERED: Naloxone 0.4 MG/ML INJ IVP PRN (19:53)
[2020-09-16] MEDS ORDERED: Ondansetron ODT 4 MG TAB.RAPDIS SL PRN (19:54)
[2020-09-16] MEDS: Acetaminophen 325 MG TABLET PO PRN (21:38)
[2020-09-16] MEDS: Gabapentin 300 MG CAPSULE PO SCH (21:39)
[2020-09-16] MEDS: Nystatin POWDER 30 GM BOTTLE TP SCH (21:40)
[2020-09-16] MEDS: Ipratropium/Albuterol Neb 3 ML IH SCH (21:59)
[2020-09-17] MEDS: Ipratropium/Albuterol Neb 3 ML IH SCH ×4 (03:33→20:20)
[2020-09-17 04:50] LABS: INR 1.6; Prothrombin Time 17.7 Seconds (9.4-12.1)
[2020-09-17] MEDS ORDERED: cefTRIAXone 1,000 MG in 0.9 % Sodium Chloride Mini Bag 100 ML IVPB SCH (09:00)
[2020-09-17] MEDS: Loratadine 10 MG TABLET PO SCH (10:27)
[2020-09-17] MEDS: Furosemide 40 MG TABLET PO SCH ×2 (10:27→19:44)
[2020-09-17] MEDS: acetaZOLAMIDE 250 MG TABLET PO SCH ×2 (10:27→19:42)
[2020-09-17] MEDS: Spironolactone 25 MG TABLET PO SCH (10:27)
[2020-09-17] MEDS: Gabapentin 300 MG CAPSULE PO SCH ×3 (10:28→19:43)
[2020-09-17] MEDS: Nystatin POWDER 30 GM BOTTLE TP SCH ×3 (10:34→19:44)
[2020-09-17] MEDS ORDERED: Warfarin perPT PO PRN (18:00)
[2020-09-17] MEDS ORDERED: *HR* Warfarin 5 MG TABLET PO ONE (18:00)
[2020-09-18] MEDS: Ipratropium/Albuterol Neb 3 ML IH SCH ×4 (03:23→21:29)
[2020-09-18 04:58] LABS: Hemoglobin 11.6 g/dL (11.5-15.4); Mean Corpuscular Hemoglobin 26.8 pg (28.0-33.3); Mean Corpuscular Volume 92.4 fL (83.0-100.0); Mean Platelet Volume 10.2 fL (9.4-12.4); Platelet Count 182 K/mcL (140-400); Red Blood Count 4.33 M/mcL (3.82-4.97); Red Cell Distribution Width 15.3 % (11.5-14.5)
[2020-09-18 05:08] LABS: VBG HCO3 33 mEq/L (21-27); VBG PCO2 53 mmHg (41-51); VBG PH 7.39 pH Units (7.32-7.42); VBG PO2 129 mmHg (25-50)
[2020-09-18 05:08] LABS: INR 1.6; Prothrombin Time 17.8 Seconds (9.4-12.1)
[2020-09-18 05:15] LABS: BUN/Creatinine Ratio 21 (6-26); Blood Urea Nitrogen 21 mg/dL (8-23); Calcium 8.4 mg/dL (8.6-10.3); Carbon Dioxide 37 mEq/L (23-29); Chloride 95 mEq/L (98-107); Glucose 126 mg/dL (70-105); Osmolality,Calculated 287 (280-300); Potassium 3.7 mEq/L (3.5-5.1); Sodium 136 mEq/L (136-145); eGFR For African Americans > 60 (> 60); eGFR For Non-African Americans 53 (> 60)
[2020-09-18] MEDS ORDERED: cefTRIAXone 1,000 MG in 0.9 % Sodium Chloride Mini Bag 100 ML IVPB SCH (09:00)
[2020-09-18] MEDS: Loratadine 10 MG TABLET PO SCH (10:28)
[2020-09-18] MEDS: Furosemide 40 MG TABLET PO SCH ×2 (10:28→16:44)
[2020-09-18] MEDS: acetaZOLAMIDE 250 MG TABLET PO SCH ×2 (10:28→16:44)
[2020-09-18] MEDS: Spironolactone 25 MG TABLET PO SCH (10:29)
[2020-09-18] MEDS: Nystatin POWDER 30 GM BOTTLE TP SCH ×3 (10:29→20:17)
[2020-09-18] MEDS: Gabapentin 300 MG CAPSULE PO SCH ×3 (10:29→20:16)
[2020-09-18] MEDS ORDERED: *HR* Warfarin 3 MG TABLET PO ONE (12:00)
[2020-09-18] MEDS: Cefdinir 300 MG CAPSULE PO SCH (23:46)
[2020-09-19] MEDS: Ipratropium/Albuterol Neb 3 ML IH SCH ×4 (03:26→21:13)
[2020-09-19 06:07] LABS: INR 1.8; Prothrombin Time 20.1 Seconds (9.4-12.1)
[2020-09-19] MEDS: Cefdinir 300 MG CAPSULE PO SCH ×2 (09:30→20:26)
[2020-09-19] MEDS: Loratadine 10 MG TABLET PO SCH (09:30)
[2020-09-19] MEDS: Furosemide 40 MG TABLET PO SCH ×2 (09:30→16:38)
[2020-09-19] MEDS: Gabapentin 300 MG CAPSULE PO SCH ×3 (09:31→20:26)
[2020-09-19] MEDS: acetaZOLAMIDE 250 MG TABLET PO SCH ×2 (09:32→20:27)
[2020-09-19] MEDS: Spironolactone 25 MG TABLET PO SCH (09:32)
[2020-09-19] MEDS: Nystatin POWDER 30 GM BOTTLE TP SCH ×3 (09:32→20:27)
[2020-09-19] MEDS ORDERED: Mag Hydrox/Al Hydrox/Simeth 30 ML UDC PO PRN (14:32)
[2020-09-19] MEDS: Acetaminophen 325 MG TABLET PO PRN (16:38)
[2020-09-19] MEDS ORDERED: *HR* Warfarin 5 MG TABLET PO ONE ×2 (18:00→18:30)
[2020-09-20] MEDS: Ipratropium/Albuterol Neb 3 ML IH SCH ×4 (03:19→19:38)
[2020-09-20 05:18] LABS: INR 1.9; Prothrombin Time 21.4 Seconds (9.4-12.1)
[2020-09-20] MEDS: acetaZOLAMIDE 250 MG TABLET PO SCH ×2 (09:52→22:45)
[2020-09-20] MEDS: Loratadine 10 MG TABLET PO SCH (09:52)
[2020-09-20] MEDS: Acetaminophen 325 MG TABLET PO PRN (09:52)
[2020-09-20] MEDS: Furosemide 40 MG TABLET PO SCH ×2 (09:52→17:25)
[2020-09-20] MEDS: Cefdinir 300 MG CAPSULE PO SCH ×2 (09:52→22:45)
[2020-09-20] MEDS: Gabapentin 300 MG CAPSULE PO SCH ×3 (09:52→22:46)
[2020-09-20] MEDS: Nystatin POWDER 30 GM BOTTLE TP SCH ×3 (09:55→22:50)
[2020-09-20] MEDS ORDERED: *HR* Warfarin 5 MG TABLET PO ONE (18:00)
[2020-09-21] MEDS: Ipratropium/Albuterol Neb 3 ML IH SCH ×4 (03:09→21:13)
[2020-09-21 06:06] LABS: Prothrombin Time 22.6 Seconds (9.4-12.1)
[2020-09-21] MEDS: Gabapentin 300 MG CAPSULE PO SCH ×3 (07:50→22:11)
[2020-09-21] MEDS: Cefdinir 300 MG CAPSULE PO SCH ×2 (07:50→22:11)
[2020-09-21] MEDS: Loratadine 10 MG TABLET PO SCH (07:50)
[2020-09-21] MEDS: acetaZOLAMIDE 250 MG TABLET PO SCH ×2 (07:51→22:11)
[2020-09-21] MEDS: Furosemide 40 MG TABLET PO SCH ×2 (07:51→15:31)
[2020-09-21] MEDS: Nystatin POWDER 30 GM BOTTLE TP SCH ×3 (11:06→22:10)
[2020-09-21] MEDS ORDERED: *HR* Warfarin 5 MG TABLET PO ONE (18:00)
[2020-09-22] MEDS: Ipratropium/Albuterol Neb 3 ML IH SCH ×4 (03:28→22:07)
[2020-09-22 05:24] LABS: Hematocrit 39.6 % (35.3-44.9); Hemoglobin 11.6 g/dL (11.5-15.4); Mean Corpuscular HGB Conc 29.3 g/dL (31.6-35.5); Mean Corpuscular Hemoglobin 26.6 pg (28.0-33.3); Mean Corpuscular Volume 90.8 fL (83.0-100.0); Mean Platelet Volume 10.8 fL (9.4-12.4); Platelet Count 208 K/mcL (140-400); Red Blood Count 4.36 M/mcL (3.82-4.97); Red Cell Distribution Width 15.3 % (11.5-14.5); White Blood Count 5.5 K/mcL (4.3-11.1)
[2020-09-22 05:27] LABS: INR 1.9; Prothrombin Time 21.6 Seconds (9.4-12.1)
[2020-09-22 05:44] LABS: Alanine Aminotransferase 9 Units/L (7-52); Albumin 3.2 g/dL (3.5-5.7); Alkaline Phosphatase 126 Units/L (34-104); Aspartate Amino Transferase 13 Units/L (13-39); BUN/Creatinine Ratio 20 (6-26); Bilirubin,Total 0.7 mg/dL (0.3-1.0); Blood Urea Nitrogen 21 mg/dL (8-23); Calcium 8.6 mg/dL (8.6-10.3); Carbon Dioxide 37 mEq/L (23-29); Chloride 97 mEq/L (98-107); Globulin 3.3 g/dL (2.4-3.5); Glucose 128 mg/dL (70-105); Magnesium 1.9 mg/dL (1.6-2.6); Osmolality,Calculated 293 (280-300); Potassium 3.7 mEq/L (3.5-5.1); Sodium 139 mEq/L (136-145); Total Protein 6.5 g/dL (6.4-8.9); eGFR For African Americans > 60 (> 60); eGFR For Non-African Americans 50 (> 60)
[2020-09-22] MEDS: Cefdinir 300 MG CAPSULE PO SCH ×2 (09:26→21:53)
[2020-09-22] MEDS: Gabapentin 300 MG CAPSULE PO SCH ×3 (09:26→21:53)
[2020-09-22] MEDS: acetaZOLAMIDE 250 MG TABLET PO SCH ×2 (09:26→21:53)
[2020-09-22] MEDS: Loratadine 10 MG TABLET PO SCH (09:26)
[2020-09-22] MEDS: Furosemide 40 MG TABLET PO SCH ×2 (09:26→16:59)
[2020-09-22] MEDS: Nystatin POWDER 30 GM BOTTLE TP SCH ×3 (09:28→21:54)
[2020-09-22] MEDS: Acetaminophen 325 MG TABLET PO PRN (17:00)
[2020-09-22] MEDS ORDERED: *HR* Warfarin 5 MG TABLET PO ONE (18:00)
[2020-09-23] MEDS: Ipratropium/Albuterol Neb 3 ML IH SCH ×4 (03:52→20:45)
[2020-09-23 05:11] LABS: Prothrombin Time 22.7 Seconds (9.4-12.1)
[2020-09-23] MEDS ORDERED: E-Z-HD (BARIUM SULF) SUSPENSION PO ONE (10:48)
[2020-09-23] MEDS ORDERED: E-Z-PAQUE (BARIUM SULF) SUSP 1 BOTTLE PO ONE (10:48)
[2020-09-23] MEDS: Gabapentin 300 MG CAPSULE PO SCH ×3 (11:31→22:36)
[2020-09-23] MEDS: Cefdinir 300 MG CAPSULE PO SCH ×2 (11:31→22:35)
[2020-09-23] MEDS: Nystatin POWDER 30 GM BOTTLE TP SCH ×3 (11:32→22:37)
[2020-09-23] MEDS: Furosemide 40 MG TABLET PO SCH ×2 (11:32→16:44)
[2020-09-23] MEDS: Loratadine 10 MG TABLET PO SCH (11:32)
[2020-09-23] MEDS: acetaZOLAMIDE 250 MG TABLET PO SCH (12:30)
[2020-09-23] MEDS ORDERED: *HR* Warfarin 7.5 MG TABLET PO ONE (18:00)
[2020-09-24] MEDS: Ipratropium/Albuterol Neb 3 ML IH SCH ×4 (03:41→20:20)
[2020-09-24 05:06] LABS: INR 2.4; Prothrombin Time 26.7 Seconds (9.4-12.1)
[2020-09-24] MEDS: Gabapentin 300 MG CAPSULE PO SCH ×3 (08:05→20:43)
[2020-09-24] MEDS: Cefdinir 300 MG CAPSULE PO SCH (08:05)
[2020-09-24] MEDS: Furosemide 40 MG TABLET PO SCH ×2 (08:05→16:36)
[2020-09-24] MEDS: Loratadine 10 MG TABLET PO SCH (08:06)
[2020-09-24] MEDS: Nystatin POWDER 30 GM BOTTLE TP SCH ×3 (08:06→20:45)
[2020-09-24] MEDS ORDERED: *HR* Warfarin 5 MG TABLET PO ONE (18:00)
[2020-09-25] MEDS: Ipratropium/Albuterol Neb 3 ML IH SCH ×4 (01:48→22:04)
[2020-09-25 05:09] LABS: INR 2.6; Prothrombin Time 28.8 Seconds (9.4-12.1)
[2020-09-25] MEDS: Gabapentin 300 MG CAPSULE PO SCH ×3 (09:25→22:13)
[2020-09-25] MEDS: Furosemide 40 MG TABLET PO SCH ×2 (09:26→17:30)
[2020-09-25] MEDS: Loratadine 10 MG TABLET PO SCH (09:26)
[2020-09-25] MEDS: Nystatin POWDER 30 GM BOTTLE TP SCH ×3 (09:28→22:19)
[2020-09-25] MEDS ORDERED: *HR* Warfarin 5 MG TABLET PO SCH (18:00)
[2020-09-26] MEDS: Ipratropium/Albuterol Neb 3 ML IH SCH ×2 (03:57→10:58)
[2020-09-26] MEDS ORDERED: metOLazone 5 MG TABLET PO SCH (07:00)
[2020-09-26 08:00] VITALS: BP 101/63
[2020-09-26] MEDS: Gabapentin 300 MG CAPSULE PO SCH (10:00)
[2020-09-26] MEDS: Loratadine 10 MG TABLET PO SCH (10:00)
[2020-09-26] MEDS: Furosemide 40 MG TABLET PO SCH (10:00)
[2020-09-26] MEDS: Nystatin POWDER 30 GM BOTTLE TP SCH (10:01)
== END 2020-09-26 11:15 | disposition home or self-care (01) | DRG 945 ==
LOC: INPGRE 20:17
PROVIDERS: ADMIT Family Medicine; ATTEND Family Medicine